=== PATIENT | male | born 1955 | race Caucasian/White ===

== ENCOUNTER 2018-06-30 14:11 | Emergency (ER) | payer OTHER ==
[2018-06-30] MEDS ORDERED: predniSONE 20 MG TAB ONE (16:01)
--- NOTE | 2018-06-30 16:02 | ER ---
Nurse's Notes [facility] Name: Leobardo Tejeda Age: 62 yrs Sex: Male : 1955 Arrival Date: 06/30/2018 Time: 14:13 Bed 19 Private MD: Ace Navas E Diagnosis: Gout Presentation: 06/30 14:38 Presenting complaint: Patient states: gout flare-up to right foot. Transition of care: aa5 patient was not received from another setting of care. Onset of symptoms was 2018. Risk Assessment: Do you want to hurt yourself or someone else? Patient reports no desire to harm self or others. Initial Sepsis Screen: Does the patient meet any 2 criteria? No. Patient's initial sepsis screen is negative. Does the patient have a suspected source of infection? No. Patient's initial sepsis screen is negative. Care prior to arrival: None. 14:38 Method Of Arrival: Wheelchair aa 14:38 Acuity: MERLY 3 aa5 Triage Assessment: 14:41 General: Appears in no apparent distress. uncomfortable, Behavior is calm, cooperative, hj appropriate for age. Pain: Complains of pain in right foot Pain currently is 10 out of 10 on a pain scale. 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 - Social history:: Smoking status: Patient uses tobacco products, smokes one pack cigarettes per day. - Ebola Screening: : No symptoms or risks identified at this time. Screenin:41 Abuse screen: Denies threats or abuse. Denies injuries from another. Nutritional hj screening: No deficits noted. Tuberculosis screening: No symptoms or risk factors identified. Fall Risk None identified. Assessment: 14:30 General: Appears in no apparent distress. uncomfortable, Behavior is calm, cooperative, hj appropriate for age. Pain: Complains of pain in right foot. Neuro: Level of Consciousness is awake, alert, obeys commands, Oriented to person, place, time, situation, Appropriate for age. Cardiovascular: Capillary refill < 3 seconds Patient's skin is warm and dry. Respiratory: Airway is patent Respiratory effort is even, unlabored, Respiratory pattern is regular, symmetrical. GI: No signs and/or symptoms were reported involving the gastrointestinal system. : No signs and/or symptoms were reported regarding the genitourinary system. EENT: No signs and/or symptoms were reported regarding the EENT system. Derm: No signs and/or symptoms reported regarding the dermatologic system. Musculoskeletal: Reports pain in right foot. Vital Signs: 14:39 BP 129 / 86; Pulse 105; Resp 18 S; Temp 98.0(TE); Pulse Ox 97% on R/A; Weight 102.06 kg aa5 (R); Height 5 ft. 10 in. (177.80 cm) (R); Pain 10/10; 16:09 BP 125 / 84; Pulse 99; Resp 18; Pulse Ox 100% on R/A; hj 14:39 Body Mass Index 32.28 (102.06 kg, 177.80 cm) aa5 ED Course: 14:13 Patient arrived in ED. rg4 14:14 Ace Navas MD is Private Physician. rg4 14:38 Triage completed. aa5 14:38 Arm band placed on. aa5 14:40 Jed Dixon RN is Primary Nurse. hj 14:41 Holden Lux MD is Attending Physician. gs 14:41 Patient has correct armband on for positive identification. Bed in low position. Call hj light in reach. Side rails up X 1. Adult w/ patient. 15:58 Ace Navas MD is Referral Physician. gs 16:09 No provider procedures requiring assistance completed. Patient did not have IV access hj during this emergency room visit. Administered Medications: 15:47 Drug: predniSONE 40 mg Route: PO; hj 15:56 Follow up: Response: No adverse reaction hj Outcome: 16:01 Discharge ordered by . gs 16:09 Discharged to home ambulatory, provided money for Sien; hj 16:09 Condition: stable 16:09 Discharge instructions given to patient, Instructed on discharge instructions, follow up and referral plans. medication usage, Demonstrated understanding of instructions, follow-up care, medications, Prescriptions given X 3. 16:10 Patient left the ED. hj Signatures: Yelena Gonzalez RN RN [facility] Jed Dixon RN RN hj Garcia, [facility] Holden Lux MD MD
--- NOTE | 2018-06-30 16:02 | EDPHYS ---
Physician Documentation [facility] Name: Leobardo Tejeda Age: 62 yrs Sex: Male : 1955 Arrival Date: 06/30/2018 Time: 14:13 Bed 19 Private MD: Ace Navas E ED Physician Holden Lux HPI: 06/30 15:46 This 62 yrs old Male presents to ER via Wheelchair with complaints of Foot gs Pain, Feet Swelling. 15:47 The patient presents with pain, swelling, tenderness. The complaints affect the right gs foot. Context: Mechanism of Injury: NO INJURY JUST PAINFUL SWOLLEN SIMILAR WITH GOUT ATTACKS. Onset: The symptoms/episode began/occurred 3 day(s) ago. Associated signs and symptoms: Pertinent negatives: fever. Severity of symptoms: At their worst the symptoms were moderate, in the emergency department the symptoms are unchanged. The patient has experienced similar episodes in the past, several times. 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 - Social history:: Smoking status: Patient uses tobacco products, smokes one pack cigarettes per day. - Ebola Screening: : No symptoms or risks identified at this time. ROS: 15:47 All other systems are negative. gs Exam: 15:47 ENT: Nares patent. No nasal discharge, no septal abnormalities noted. Tympanic gs membranes are normal and external auditory canals are clear. Oropharynx with no redness, swelling, or masses, exudates, or evidence of obstruction, uvula midline. Mucous membranes moist. Neck: Trachea midline, no thyromegaly or masses palpated, and no cervical lymphadenopathy. Supple, full range of motion without nuchal rigidity, or vertebral point tenderness. No Meningismus. Cardiovascular: Regular rate and rhythm with a normal S1 and S2. No gallops, murmurs, or rubs. Normal PMI, no JVD. No pulse deficits. Respiratory: Lungs have equal breath sounds bilaterally, clear to auscultation and percussion. No rales, rhonchi or wheezes noted. No increased work of breathing, no retractions or nasal flaring. Abdomen/GI: Soft, non-tender, with normal bowel sounds. No distension or tympany. No guarding or rebound. No evidence of tenderness throughout. Back: No spinal tenderness. No costovertebral tenderness. Full range of motion. Skin: Warm, dry with normal turgor. Normal color with no rashes, no lesions, and no evidence of cellulitis. Neuro: Awake and alert, GCS 15, oriented to person, place, time, and situation. Cranial nerves II-XII grossly intact. Motor strength 5/5 in all extremities. Sensory grossly intact. Cerebellar exam normal. Normal gait. 15:47 Constitutional: The patient appears alert, awake, uncomfortable. 15:47 Musculoskeletal/extremity: Extremities: noted in the dorsum of right foot and right first toe: swelling, tenderness. Vital Signs: 14:39 BP 129 / 86; Pulse 105; Resp 18 S; Temp 98.0(TE); Pulse Ox 97% on R/A; Weight 102.06 kg aa5 (R); Height 5 ft. 10 in. (177.80 cm) (R); Pain 10/10; 16:09 BP 125 / 84; Pulse 99; Resp 18; Pulse Ox 100% on R/A; hj 14:39 Body Mass Index 32.28 (102.06 kg, 177.80 cm) aa5 MDM: 15:40 Patient medically screened. gs 15:47 Differential diagnosis: arthritis, gout. Data reviewed: vital signs, nurses notes. gs Counseling: I had a detailed discussion with the patient and/or guardian regarding: the historical points, exam findings, and any diagnostic results supporting the discharge/admit diagnosis, the need for outpatient follow up. Response to treatment: the patient's symptoms have mildly improved after treatment, and as a result, I will discharge patient. Administered Medications: 15:47 Drug: predniSONE 40 mg Route: PO; hj 15:56 Follow up: Response: No adverse reaction Disposition: 06/30/18 16:01 Discharged to Home. Impression: Gout. - Condition is Stable. - Discharge Instructions: Gout, [id number]. - Prescriptions for Colchicine- Probenecid 0.5-500 mg Oral Tablet - take 1 tablet by ORAL route TAKE Q 1 HOURS TOLERATED PRN PAIN; 6 tablet. Prednisone 20 mg Oral Tablet - take 1 tablet by ORAL route once daily for 5 days; 5 tablet. Tylenol- Codeine #4 300-60 mg Oral Tablet - take 1 tablet by ORAL route every 6 hours As needed; 10 tablet. - Medication Reconciliation Form, Thank You Letter, Antibiotic Education, Prescription Opioid Use form. - Follow up: Ace Navas MD; When: 2 - 3 days; Reason: Re-evaluation by your physician. Signatures: Yelena Gonzalez RN RN aa5 Jed Dixon RN RN hj Holden Lux MD MD gs Corrections: (The following items were deleted from the chart) 16:10 16:01 06/30/2018 16:01 Discharged to Home. Impression: Gout. Condition is Stable. Forms hj are Medication Reconciliation Form, Thank You Letter, Antibiotic Education, Prescription Opioid Use. Follow up: Ace Navas; When: 2 - 3 days; Reason: Re-evaluation by your physician. gs
== END 2018-06-30 16:10 | disposition home or self-care (01) ==
LOC: ER 14:11
DX: M10.9 Gout, unspecified (principal); F17.210 Nicotine dependence, cigarettes, uncomplicated
CPT/HCPCS: 99283; J7512

== ENCOUNTER 2019-03-24 07:42 | Emergency (ER) | payer OTHER ==
[2019-03-24] MEDS ORDERED: METHYLPREDNISOLONE 125 MG INJ ONE (08:16)
[2019-03-24] MEDS ORDERED: predniSONE 20 MG TAB ONE (08:16)
[2019-03-24] MEDS ORDERED: MORPHINE 4 MG/ML SYR ONE (08:16)
[2019-03-24] MEDS ORDERED: ONDANSETRON 4 MG/2 ML VIAL ONE (08:16)
[2019-03-24] MEDS ORDERED: FAMOTIDINE 20 MG/2 ML VIAL IV ONE (08:17)
--- NOTE | 2019-03-24 09:28 | ER ---
Nurse's Notes [facility] Name: Leobardo Tejeda Age: 63 yrs Sex: Male : 1955 Arrival Date: 03/24/2019 Time: 07:43 Bed 13 Private MD: Ace Navas E Diagnosis: Gout Presentation: 03/24 07:43 Presenting complaint: EMS states: pt complaining of left elbow pain that started last sg week, worsening today, pt also reports having ankle pain related to gout. pt reports taking allopurinol at home, denies any other symptoms at this time. Transition of care: patient was not received from another setting of care. Onset of symptoms was March 24, 2019. Risk Assessment: Do you want to hurt yourself or someone else? Patient reports no desire to harm self or others. Initial Sepsis Screen: Does the patient meet any 2 criteria? No. Patient's initial sepsis screen is negative. Does the patient have a suspected source of infection? No. Patient's initial sepsis screen is negative. Care prior to arrival: None. 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 - Social history:: Smoking status: Patient/guardian denies using tobacco. - Ebola Screening: : Patient negative for fever greater than or equal to 101.5 degrees Fahrenheit, and additional compatible Ebola Virus Disease symptoms Patient denies exposure to infectious person Patient denies travel to an Ebola-affected area in the 21 days before illness onset No symptoms or risks identified at this time. Screenin:49 Abuse screen: Denies threats or abuse. Denies injuries from another. Nutritional sg screening: No deficits noted. Tuberculosis screening: No symptoms or risk factors identified. Never had TB. Fall Risk None identified. Assessment: 07:49 General: Appears in no apparent distress. well groomed, well developed, well nourished, sg Behavior is calm, cooperative, appropriate for age. Pain: Complains of pain in left elbow Quality of pain is described as aching. Neuro: Level of Consciousness is awake, alert, obeys commands, Oriented to person, place, time, [employer] are equal bilaterally Speech is normal, Facial symmetry appears normal. Cardiovascular: Capillary refill is brisk in bilateral fingers Patient's skin is warm and dry. Chest pain is denied. Respiratory: Airway is patent Respiratory effort is even, unlabored, Respiratory pattern is regular, symmetrical. GI: Abdomen is round non-distended. : No signs and/or symptoms were reported regarding the genitourinary system. EENT: No signs and/or symptoms were reported regarding the EENT system. Derm: Skin is pink, warm \\T\\ dry. Musculoskeletal: Circulation, motion, and sensation intact. Range of motion: intact in all extremities, Reports pain in left elbow. 07:54 Reassessment: Patient appears in no apparent distress at this time. pt shouting out sg loud " I didn't just come in here to just sit here, I came in here for help." awaiting evaluation by at this time. 09:00 Reassessment: Patient appears in no apparent distress at this time. Patient and/or sg family updated on plan of care and expected duration. Pain level reassessed. pt resting at this time. Vital Signs: 07:47 BP 146 / 72; Pulse 86; Resp 16; Temp 97.6; Pulse Ox 100% ; Weight 95.25 kg; Height 5 sg ft. 9 in. (175.26 cm); Pain 8/10; 07:47 Body Mass Index 31.01 (95.25 kg, 175.26 cm) ED Course: 07:43 Patient arrived in ED. sg 07:43 Ace Navas MD is Private Physician. sg 07:44 Nishant Brown MD is Attending Physician. kdr 07:46 Triage completed. sg 07:47 Arm band placed on. sg 07:49 No provider procedures requiring assistance completed. sg 07:51 Patient has correct armband on for positive identification. Bed in low position. Call sg light in reach. Pulse ox on. NIBP on. 07:51 Sling applied to left arm. per patient request for comfort. sg 08:11 Inserted saline lock: 20 gauge in right hand, using aseptic technique. em1 08:13 Frank Vela, CRICKET is Primary Nurse. sg 09:27 Ace Navas MD is Referral Physician. kdr Administered Medications: 08:20 Drug: Zofran 4 mg Route: IVP; Site: right hand; sg 08:23 Drug: SOLU-Medrol 125 mg Route: IVP; Site: right hand; sg 08:23 Drug: morphine 4 mg Route: IVP; Site: right hand; sg 08:23 Drug: Pepcid 20 mg Route: IVP; Site: right hand; sg 09:45 Drug: fentaNYL Patch (50 mcg/hr) 1 patches {Note: left deltoid.} Route: Transdermal; Site: affected area; Outcome: :27 Discharge ordered by . kdr 09:56 Patient left the ED. sg Signatures: Frank Vela RN RN Nishant Brown MD MD [facility] Tommy Xavier 1
--- NOTE | 2019-03-24 09:29 | EDPHYS ---
Physician Documentation [facility] Name: Leobardo Tejeda Age: 63 yrs Sex: Male : 1955 Arrival Date: 03/24/2019 Time: 07:43 Bed 13 Private MD: Ace Navas E ED Physician Nishant Brown HPI: 03/24 08:02 This 63 yrs old Male presents to ER via EMS with complaints of Arm Pain. kdr 08:02 The patient or guardian complains of decreased range of motion, pain, that is acute. kdr The complaints affect the left antecubital area and left elbow. Context: The problem was sustained at home, resulted from Gout Flare. Onset: The symptoms/episode began/occurred gradually, 3 day(s) ago. Treatment prior to arrival includes: no previous treatment. Modifying factors: The symptoms are alleviated by remaining still, the symptoms are aggravated by movement, bending arm. Associated signs and symptoms: The patient has no apparent associated signs or symptoms. Severity of symptoms: At their worst the symptoms were moderate, severe, just prior to arrival. The patient has experienced similar episodes in the past, multiple times. The patient has not recently seen a physician. 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 - Social history:: Smoking status: Patient/guardian denies using tobacco. - Ebola Screening: : Patient negative for fever greater than or equal to 101.5 degrees Fahrenheit, and additional compatible Ebola Virus Disease symptoms Patient denies exposure to infectious person Patient denies travel to an Ebola-affected area in the 21 days before illness onset No symptoms or risks identified at this time. ROS: 08:02 Constitutional: Negative for fever, chills, and weight loss, Eyes: Negative for injury, kdr pain, redness, and discharge, Neck: Negative for injury, pain, and swelling, Cardiovascular: Negative for chest pain, palpitations, and edema, Respiratory: Negative for shortness of breath, cough, wheezing, and pleuritic chest pain, Abdomen/GI: Negative for abdominal pain, nausea, vomiting, diarrhea, and constipation, Back: Negative for injury and pain, : Negative for injury, bleeding, discharge, and swelling, MS/Extremity: Negative for injury and deformity, he does have pain and warmth to the medical aspect of the left elbow nad the lateral aspect of the left ankle Skin: Negative for injury, rash, and discoloration, Neuro: Negative for headache, weakness, numbness, tingling, and seizure activity. Psych: Negative for depression, anxiety, suicide ideation, homicidal ideation, and hallucinations, Allergy/Immunology: Negative for hives, rash, and allergies, Endocrine: Negative for neck swelling, polydipsia, polyuria, polyphagia, and marked weight changes, Hematologic/Lymphatic: Negative for swollen nodes, abnormal bleeding, and unusual bruising. Exam: 08:02 Constitutional: This is a well developed, well nourished patient who is awake, alert, kdr and in no acute distress. Head/Face: Normocephalic, atraumatic. Eyes: Pupils equal round and reactive to light, extra-ocular motions intact. Lids and lashes normal. Conjunctiva and sclera are non-icteric and not injected. Cornea within normal limits. Periorbital areas with no swelling, redness, or edema. Neck: Trachea midline, no thyromegaly or masses palpated, and no cervical lymphadenopathy. Supple, full range of motion without nuchal rigidity, or vertebral point tenderness. No Meningismus. Back: No spinal tenderness. No costovertebral tenderness. Full range of motion. Skin: Warm, dry with normal turgor. Normal color with no rashes, no lesions, and no evidence of cellulitis. Neuro: Awake and alert, GCS 15, oriented to person, place, time, and situation. Cranial nerves II-XII grossly intact. Motor strength 5/5 in all extremities. Sensory grossly intact. Cerebellar exam normal. Normal gait. Psych: Awake, alert, with orientation to person, place and time. Behavior, mood, and affect are within normal limits. 08:02 Musculoskeletal/extremity: Extremities: grossly normal except: noted in the left antecubital area and left elbow: pain, tenderness, warmth, The patient describes this presentation as a recurrence of his ongoing gout issues. Vital Signs: 07:47 BP 146 / 72; Pulse 86; Resp 16; Temp 97.6; Pulse Ox 100% ; Weight 95.25 kg; Height 5 sg ft. 9 in. (175.26 cm); Pain 8/10; 07:47 Body Mass Index 31.01 (95.25 kg, 175.26 cm) sg MDM: 09:27 Patient medically screened. kdr 09:29 Data reviewed: vital signs, nurses notes. Counseling: I had a detailed discussion with kdr the patient and/or guardian regarding: the historical points, exam findings, and any diagnostic results supporting the discharge/admit diagnosis, the need for outpatient follow up. ED course: The patient was stable in the ED and improved with the interventions given. he was happy with the care provided and the plan for discharge and follow-up. Administered Medications: 08:20 Drug: Zofran 4 mg Route: IVP; Site: right hand; sg 08:23 Drug: SOLU-Medrol 125 mg Route: IVP; Site: right hand; sg 08:23 Drug: morphine 4 mg Route: IVP; Site: right hand; sg 08:23 Drug: Pepcid 20 mg Route: IVP; Site: right hand; sg 09:45 Drug: fentaNYL Patch (50 mcg/hr) 1 patches {Note: left deltoid.} Route: Transdermal; Site: affected area; Disposition: 03/24/19 09:27 Discharged to Home. Impression: Gout. - Condition is Stable. - Discharge Instructions: Gout, [id number]. - Prescriptions for Colchicine- Probenecid 0.5-500 mg Oral Tablet - take 1 tablet by ORAL route every 1 hour up to 3 hours; 3 tablet. Medrol (Enrrique) 4 mg Oral Tablets, Dose Pack - take 1 tablet by ORAL route as directed - follow package instructions; 1 packet. - Medication Reconciliation Form, Thank You Letter, Prescription Opioid Use form. - Follow up: Ace Navas MD; When: 2 - 3 days; Reason: If symptoms return, Further diagnostic work-up, Recheck today's complaints, Continuance of care, Re-evaluation by your physician. - Problem is an acute exacerbation. - Symptoms have improved. Signatures: Frank Vela RN RN sg Nishant Brown MD MD [facility] Corrections: (The following items were deleted from the chart) 09:56 09:27 03/24/2019 09:27 Discharged to Home. Impression: Gout. Condition is Stable. Forms sg are Medication Reconciliation Form, Thank You Letter, Antibiotic Education, Prescription Opioid Use. Follow up: Ace Navas; When: 2 - 3 days; Reason: If symptoms return, Further diagnostic work-up, Recheck today's complaints, Continuance of care, Re-evaluation by your physician. Problem is an acute exacerbation. Symptoms have improved. kdr
[2019-03-24] MEDS ORDERED: FENTANYL 50 MCG/PATCH TD ONE (09:39)
[2019-03-24 10:16] VITALS: TEMP 98.6
[2019-03-24 10:24] VITALS: BP 124/62; O2SAT 100
== END 2019-03-24 09:56 | disposition home or self-care (01) ==
LOC: ER 07:42
DX: M10.9 Gout, unspecified (principal); Z87.820 Personal history of traumatic brain injury
CPT/HCPCS: 96375; 96374; 99284; J7512; J2930; J2405

== ENCOUNTER 2021-05-04 10:19 | Emergency (ER) | payer OTHER ==
[2021-05-04] MEDS ORDERED: HYDROCODONE/APAP 10/325 TAB ONE (11:28)
--- NOTE | 2021-05-04 12:25 | EDPHYS ---
Physician Documentation [facility] Name: Leobardo Tejeda Age: 65 yrs Sex: Male : 1955 Arrival Date: 05/04/2021 Time: 10:21 Bed 17 Private MD: ED Physician Nishant Brown HPI: 05/04 17:31 This 65 yrs old Male presents to ER via EMS with complaints of Right foot and great toe kdr pain. 17:31 The patient presents with decreased range of motion, pain, that is chronic. The kdr complaints affect the right foot. Context: Patient has history of gout in the same foot and ankle. Over the last few days, 3 to 4 days, he has had increasing pain and is in his typical fashion for gout flares. He denies any other associated signs or symptoms including fever nausea vomiting. Onset: The symptoms/episode began/occurred gradually, 4 day(s) ago. Modifying factors: The symptoms are alleviated by nothing, the symptoms are aggravated by nothing. Associated signs and symptoms: The patient has no apparent associated signs or symptoms. Severity of symptoms: At their worst the symptoms were mild, in the emergency department the symptoms are unchanged. The patient has experienced similar episodes in the past, multiple times, chronically. The patient has not recently seen a physician. Historical: - Home Meds: 10:23 Allopurinol Oral [Active]; ap3 - PMHx: 10:23 Distant drug abuse; Gout; ap3 - Immunization history:: Adult Immunizations up to date, Client reports receiving the 2nd dose of the Covid vaccine. - Social history:: Smoking status: Patient reports the use of cigarette tobacco products, smokes one pack cigarettes per day. Patient uses alcohol, occasionally. ROS: 17:31 Constitutional: Negative for fever, chills, and weight loss, Eyes: Negative for injury, kdr pain, redness, and discharge, Neck: Negative for injury, pain, and swelling, Cardiovascular: Negative for chest pain, palpitations, and edema, Respiratory: Negative for shortness of breath, cough, wheezing, and pleuritic chest pain, Abdomen/GI: Negative for abdominal pain, nausea, vomiting, diarrhea, and constipation, Back: Negative for injury and pain, : Negative for injury, bleeding, discharge, and swelling, Skin: Negative for injury, rash, and discoloration, Neuro: Negative for headache, weakness, numbness, tingling, and seizure activity. Psych: Negative for depression, anxiety, suicide ideation, homicidal ideation, and hallucinations, Allergy/Immunology: Negative for hives, rash, and allergies, Endocrine: Negative for neck swelling, polydipsia, polyuria, polyphagia, and marked weight changes, Hematologic/Lymphatic: Negative for swollen nodes, abnormal bleeding, and unusual bruising. 17:31 MS/extremity: Positive for decreased range of motion, pain, tenderness, of the lateral aspect of right toes, medial aspect of right toes, ball of right foot, right first toe and Right first toenail. Exam: 17:31 Constitutional: This is a well developed, well nourished patient who is awake, alert, kdr and in no acute distress. Head/Face: Normocephalic, atraumatic. 17:31 Musculoskeletal/extremity: Extremities: grossly normal except: noted in the medial aspect of right toes, plantar aspect of right first toe, ball of right foot and right first toe: decreased ROM, pain, swelling, tenderness, Minimal swelling, tenderness and erythema to the first MTP on the right foot. Vital Signs: 10:22 BP 128 / 67; Pulse 76; Resp 17; Temp 98.6(O); Pulse Ox 100% on R/A; Weight 90.72 kg; ap3 Height 5 ft. 10 in. (177.80 cm); Pain 8/10; 10:30 BP 130 / 71; Pulse 78; Resp 17 S; Pulse Ox 99% on R/A; jg9 11:00 BP 136 / 73; Pulse 78; Resp 17; Pulse Ox 99% on R/A; jg9 12:30 BP 140 / 78; Pulse 80; Resp 17; Pulse Ox 97% on R/A; jg9 10:22 Body Mass Index 28.70 (90.72 kg, 177.80 cm) ap3 MDM: 12:24 Patient medically screened. kdr 17:31 Data reviewed: vital signs, nurses notes, lab test result(s), radiologic studies. kdr Counseling: I had a detailed discussion with the patient and/or guardian regarding: the historical points, exam findings, and any diagnostic results supporting the discharge/admit diagnosis, the need for outpatient follow up. Administered Medications: 11:32 Drug: [place] (HYDROcodone-acetaminophen) 10 mg-325 mg 1 tabs {Note: RASS-0.} Route: PO; jg9 12:30 Follow up: Response: No adverse reaction; Pain is decreased jg9 12:42 Drug: SOLU-Medrol (methylPREDNISolone sodium succinate) 125 mg Route: IM; Site: left jg9 vastus lateralis; 12:43 Follow up: Response: Medication administered at discharge. jg9 Disposition Summary: 05/04/21 12:24 Discharge Ordered Location: Home kdr Problem: an acute exacerbation kdr Symptoms: have improved kdr Condition: Stable kdr Diagnosis - Idiopathic gout, right ankle and foot kdr Followup: kdr - With: Private Physician - When: 2 - 3 days - Reason: If symptoms return, Further diagnostic work-up, Recheck today's complaints, Continuance of care, Re-evaluation by your physician Discharge Instructions: - Discharge Summary Sheet kdr - Gout, [id number] kdr Forms: - Medication Reconciliation Form kdr - Thank You Letter kdr - Antibiotic Education kdr - Prescription Opioid Use kdr Prescriptions: - colchicine 0.6 mg Oral tablet - take 2 tablet by ORAL route once daily for 7 days; 14 tablet; Refills: 0, kdr Product Selection Permitted - indomethacin 50 mg Oral capsule - take 1 capsule by ORAL route 3 times per day for 7 days; 21 capsule; Refills: kdr 0, Product Selection Permitted - Medrol (Enrrique) 4 mg Oral Tablets, Dose Pack - take 1 tablet by ORAL route as directed - follow package instructions; 1 kdr packet; Refills: 0, Product Selection Permitted - Tylenol-Codeine #3 300 mg-30 mg Oral - take 1 tablet by ORAL route every 4-6 hours As needed; 10 tablet; Refills: 0, kdr Product Selection Permitted Signatures: Nishant Brown MD MD kdr Flakita Weinstein RN RN ap3 Erika Alvarez jg9 Corrections: (The following items were deleted from the chart) 10:24 10:23 PMHx: seizures (from head injury); ap3 ap3
--- NOTE | 2021-05-04 12:25 | ER ---
Nurse's Notes [facility] Name: Leobardo Tejeda Age: 65 yrs Sex: Male : 1955 Arrival Date: 05/04/2021 Time: 10:21 Bed 17 [facility] MD: Diagnosis: Idiopathic gout, right ankle and foot Presentation: 05/04 10:22 Chief complaint: EMS states: they were called for a patient complaining of right foot ap3 pain related to a hx of gout. patient reports he has been out of his medication for approx. 2 weeks. Coronavirus screen: At this time, the client does not indicate any symptoms associated with coronavirus-19. Ebola Screen: No symptoms or risks identified at this time. Initial Sepsis Screen: Does the patient meet any 2 criteria? No. Patient's initial sepsis screen is negative. Does the patient have a suspected source of infection? No. Patient's initial sepsis screen is negative. Risk Assessment: Do you want to hurt yourself or someone else? Patient reports no desire to harm self or others. Onset of symptoms was May 04, 2021. 10:22 Method Of Arrival: EMS: [facility] ap3 10:22 Acuity: MERLY 4 ap3 Historical: - Home Meds: 10:23 Allopurinol Oral [Active]; ap3 - PMHx: 10:23 Distant drug abuse; Gout; ap3 - Immunization history:: Adult Immunizations up to date, Client reports receiving the 2nd dose of the Covid vaccine. - Social history:: Smoking status: Patient reports the use of cigarette tobacco products, smokes one pack cigarettes per day. Patient uses alcohol, occasionally. Screenin:25 Abuse screen: Denies threats or abuse. Nutritional screening: No deficits noted. ap3 Tuberculosis screening: No symptoms or risk factors identified. Fall Risk No fall in past 12 months (0 pts). Secondary diagnosis (15 points) gout in right foot. No IV (0 pts). Ambulatory Aid- None/Bed Rest/Nurse Assist (0 pts). Gait- Weak (10 pts.). Mental Status- Oriented to own ability (0 pts). Total Alvarado Fall Scale indicates Low Risk Score (25-44 pts). Fall prevention measures have been instituted. Side Rails Up X 2 Placed close to Nursing Station Frequent Obs/Assesments occuring As available Patient and Family Educated on Fall Prevention Program and strategies. Assessment: 10:24 General: Appears in no apparent distress. Behavior is calm, cooperative. Pain: ap3 Complains of pain in right foot. Pain: Pain does not radiate. Pain currently is 8 out of 10 on a pain scale. Neuro: Level of Consciousness is awake, alert, obeys commands, Oriented to person, place, time, situation, Appropriate for age. Cardiovascular: Patient's skin is warm and dry. Respiratory: Airway is patent Respiratory effort is even, unlabored. GI: No signs and/or symptoms were reported involving the gastrointestinal system. Musculoskeletal: Swelling present in right foot. 11:33 Reassessment: Patient states that if he can't go outside to have a smoke he is going to [facility] leave. 11:35 Reassessment: patient attempting to ambulate. patient is unsteady on his feet. nurse ap3 educated patient on need to request assistance when ambulating. patient verbalized understanding. Patient then requested to smoke, nurse then educated patient on the dangers of smoking in a hospital facility where oxygen is used. Patient verbalized understanding. Patient states he wants to go outside for a cigerette. Nurse educated patient that he just received a narcotic, and he is unsteady. patient still insists on leaving. 11:54 Reassessment: patient approaching nurses station stating he needs a cigarette. nurse ap3 educated patient on the facilities policies regarding smoking. patient is getting verbally aggressive. patient instructed to return to his room. patient is still unsteady on his feet, and educated again on the use of the call light. patient verbalized understanding. 12:31 Reassessment: patient wheeled himself outside for a cigarette after being educated that [facility] non[facility]. Security notified. Vital Signs: 10:22 BP 128 / 67; Pulse 76; Resp 17; Temp 98.6(O); Pulse Ox 100% on R/A; Weight 90.72 kg; ap3 Height 5 ft. 10 in. (177.80 cm); Pain 8/10; 10:30 BP 130 / 71; Pulse 78; Resp 17 S; Pulse Ox 99% on R/A; jg9 11:00 BP 136 / 73; Pulse 78; Resp 17; Pulse Ox 99% on R/A; jg9 12:30 BP 140 / 78; Pulse 80; Resp 17; Pulse Ox 97% on R/A; jg9 10:22 Body Mass Index 28.70 (90.72 kg, 177.80 cm) ap3 ED Course: 10:21 Patient arrived in ED. em1 10:22 Flakita Weinstein, RN is Primary Nurse. ap3 10:23 Triage completed. ap3 10:25 Patient has correct armband on for positive identification. Bed in low position. Call ap3 light in reach. Side rails up X 1. Pulse ox on. NIBP on. Door closed. Noise minimized. 10:26 Arm band placed on right wrist. ap3 10:34 Nishant Brown MD is Attending Physician. kdr 12:46 No provider procedures requiring assistance completed. Patient did not have IV access ap3 during this emergency room visit. Administered Medications: 11:32 Drug: [place] (HYDROcodone-acetaminophen) 10 mg-325 mg 1 tabs {Note: RASS-0.} Route: PO; jg9 12:30 Follow up: Response: No adverse reaction; Pain is decreased jg9 12:42 Drug: SOLU-Medrol (methylPREDNISolone sodium succinate) 125 mg Route: IM; Site: left jg9 vastus lateralis; 12:43 Follow up: Response: Medication administered at discharge. jg9 Outcome: 12:24 Discharge ordered by . kdr 12:46 Discharged to home via wheelchair. jg9 12:46 Condition: stable 12:46 Discharge instructions given to patient, Instructed on discharge instructions, follow up and referral plans. Demonstrated understanding of instructions, follow-up care, medications, Prescriptions given X 4. 12:47 Patient left the ED. jg9 Signatures: Nishant Brown MD MD kdr Tommy Xavier em1 Flakita Weinstein, RN RN ap3 Erika Alvarez jg9 Corrections: (The following items were deleted from the chart) 10:24 10:23 PMHx: seizures (from head injury); ap3 ap3
[2021-05-04] MEDS ORDERED: METHYLPREDNISOLONE 125 MG INJ ONE (12:36)
[2021-05-04 13:08] VITALS: TEMP 98.6
[2021-05-04 13:14] VITALS: BP 140/78; O2SAT 97
== END 2021-05-04 12:47 | disposition home or self-care (01) ==
LOC: ER 10:19
DX: M10.071 Idiopathic gout, right ankle and foot (principal); F17.210 Nicotine dependence, cigarettes, uncomplicated
CPT/HCPCS: 96372; 99284; J2930

== ENCOUNTER 2023-09-29 01:03 | Emergency (ER) | payer OTHER ==
--- OUTSIDE RECORDS SUMMARY | 2023-09-29 01:05 | XMS REPORT | Continuity of Care Document ---
Author Name Unknown Address [address] [facility] [address] [place] [id number] [facility] thconnect Address [address] [facility] 1 [address] [place] [address] Care Team Providers Care Registered Associate Name Role Phone PCP, PATIENT DOES NOT HAVE A Primary Care Physic demarcus Unavailable HOLDEN WILLIAMSON Attending Clinician Unavailable Holden Williamson MD Attending Clinician HOLDEN WILLIAMSON Admitting Clinician Unavailable Payers Payer Name Policy Type Policy Number Effective Date Expirati on Date Source MEDICARE PART A \\T\\ B [id number] 2022 00:00:00 MEDICAID [facility] [id number] 2023 00:00:00 Allergies, Adverse Reactions, Alerts Allergy Name Allergy Type Status Severity Reaction(s) Onset Date Inactive Date Treating Clinician Comments Source NO KNOWN ALLERGIE S Drug Class Active [facility] Social History Social Habit Start Date Stop Date Quantity Comments Source Sexual orientation U [facility] Sex Assigned At 1955 00:00:00 1955 00:00:00 [facility] Smoking Status Start Date Stop Date Source Tobacco smoking consumption unknown [facility] Medications Ordered Medication Name Filled Medication Name Start Date Stop Date Current Medication? Ordering Clinician Indication Dosage Frequency Signature (SIG) Comments Components Source maalox:diph enhydrAMINE :lidocaine 2 % viscous 1:1:1 (FIRST-MOUT HWASH BLM) oral suspension 15 mL 2022-05 18:45: 00 05-13 18:56 :00 No 15mL 15 mL, Oral, ONCE, 1 dose, On Sat05/13/23 at 1245, Routine [facility] famotidine (PEPCID (PF)) injection 20 mg 2022-05 16:00: 00 05-13 15:58 :00 No 20mg 20 mg, Slow IV Push, ONCE, 1 dose, On Sat05/13/23 at 1000, ISI [facility] Immunizations Ordered Immunization Name Filled Immunization Name Date Status Comments Source SARS-COV-2 COVID-19 MODERNA 12+ YRS VACCINE Unknown Completed [facility] SARS-COV-2 COVID-19 MODERNA 12+ YRS VACCINE Unknown Completed [facility] Vital Signs Vital Name Observation Time Observation Value Comments S ource Systolic blood pressure 2023-05-13 19:30:00 154 mm[Hg] [facility] Diastolic blood pressure 2023-05-13 19:30:00 90 mm[Hg] [facility] Heart rate 2023-05-13 19:30:00 75 /min [facility] Respiratory rate 2023-05-13 19:30:00 18 /min [facility] Oxygen saturation in Arterial blood by Pulse oximetry 2023-05-13 19:30:00 97 /min [facility] Body temperature 2023-05-13 15:27:00 36.39 Cindy [facility] Body height 2023-05-13 15:27:00 177.8 cm [facility] Body weight 2023-05-13 15:27:00 90.719 kg [facility] BMI 2023-05-13 15:27:00 28.70 kg/m2 [facility] Procedures Procedure Date / Time Performed Performing Clinicia n Source TROPONIN I 2023-05-13 19:02:00 Holden Williamson [facility] HB ECG ROUTINE & RHYTHM STRIP 2023-05-13 15:59:09 Holden Williamson [facility] LIPASE 2023-05-13 15:58:00 Holden Williamson [facility] TROPONIN I 2023-05-13 15:58:00 Holden Williamson [facility] COMP. METABOLIC PANEL (31094) 2023-05-13 15:58:00 Holden Williamson [facility] CBC WITH DIFF 2023-05-13 15:58:00 Holden Williamson [facility] N-TERMINAL PRO-BNP 2023-05-13 15:58:00 Holden Williamson [facility] Encounters Start Date/Time End Date/Time Encounter Type Admission Type Attending Clinicians Care Facility Care Department Encounter ID Source 2023-05-13 09:26:00 2023-05-13 14:38:00 Emergency X HOLDEN WILLIAMSON [facility] ERT [id number] [facility] 2023-05-13 09:26:00 2023-05-13 14:38:00 Emergency Holden Williamson [facility] 1.2.840.114 350.1.13.10 4.2.7.2.686 [id number] [facility] Results Test Description Test Time Test Comments Results Result Co mments Source [facility]OLIC PANEL (95652)2023-05-13 17:06:52* Test Item Value Reference Range Interpretation Comme nts NA (test code = 6260692181) 135 mmol/L 135-145 K (test code = 5497400320) 4.1 mmol/L 3.5-5.0 CL (test code = 8238350787) 101 mmol/L 98-108 CO2 TOTAL (test code = 4537850274) 24 mmol/L 23-31 AGAP (test code = 4818968961) 10 2-16 BUN (test code = 2670652005) 18 mg/dL 7-23 GLUCOSE (test code = 9368748924) 109 mg/dL 70-110 CREATININE (test code = 3631525527) 0.87 mg/dL 0.60-1.25 TOTAL BILI (test code = 4149840290) 1.4 mg/dL 0.1-1.1 H CALCIUM (test code = 9539110959) 9.0 mg/dL 8.6-10.6 T PROTEIN (test code = 5632972954) 7.6 g/dL 6.3-8.2 ALBUMIN (test code = 2073175824) 4.1 g/dL 3.5-5.0 ALK PHOS (test code = 8710638467) 73 U/L 34-122 ALTv (test code = 1742-6) 31 U/L 5-50 AST(SGOT) (test code = 4804824773) 34 U/L 13-40 eGFR (test code = 77654-4) 95.8 mL/min/1.73m2 CKD-EPI eGFR (2020). Assuming creatinine has been stable day-to-day for at least three months, the eGFR indicates Category G1 (>= 90 mL/min/1.73 m2) Lab Interpretation (test code = 54497-1) Abnormal [facility] J4840-35-83 16:44:31* Test Item Value Reference Range Interpretation Comme nts TROPONIN I (test code = 0217632142) 0.004 ng/mL <=0.034 SARA (test code = SARA) Reference (Normal) Range (defined by the 99th percentile reference limit): <= 0.034 ng/mL Note: Cardiac troponin begins to rise 3-4 hours after the onset of ischemia. Repeat in 4-6 hours if the sample was drawn within 3-4 hours of the onset of the symptom and found normal. Diagnosis of myocardial injury is made with acute changes in cTn concentrations with at least one serial sample above the 99th percentile upper reference limit (URL), taken together with the patient's clinical presentation. Biotin has been reported to cause a negative bias, interpret results relative to patient's use of biotin. Lab Interpretation (test code = 31039-6) Normal [facility]AL KXF-HZX0281-76-25 16:42:40* Test Item Value Reference Range Interpretation Comme nts NT-proBNP (test code = 49301-6) 254 pg/mL <=125 SARA (test code = SARA) Result Indeterminate-Consid er causes of NT-proBNP elevation other than Heart failure such as acute coronary syndrome, pulmonary embolism, pulmonary hypertension, sepsis, stroke, and renal dysfunction. Lab Interpretation (test code = 15643-7) Abnormal [facility] CenterLIPASE2023-12-25 16:32:27* Test Item Value Reference Range Interpretation Comme nts LIPASE (test code = 0855691213) 39 U/L 0-220 Lab Interpretation (test cod e = 46050-9) Normal [facility] WITH UYOD4735-57-15 16:24:49* Test Item Value Reference Range Interpretation Comme nts WBC (test code = 6690-2) 10.54 See_Comment [Automated messa ge] The system which generated this result transmitted reference range: 4.20 - 10.70 10*3/?L. The reference range was not used to interpret this result as normal/abnormal. RBC (test code = 789-8) 4.10 See_Comment L [Automated messa ge] The system which generated this result transmitted reference range: 4.26 - 5.52 10*6/?L. The reference range was not used to interpret this result as normal/abnormal. HGB (test code = 718-7) 13.2 g/dL 12.2-16.4 HCT (test code = 4544-3) 37.7 % 38.4-49.3 L MCV (test code = 787-2) 92.0 fL 81.7-95.6 MCH (test code = 785-6) 32.2 pg 26.1-32.7 MCHC (test code = 786-4) 35.0 g/dL 31.2-35.0 RDW-SD (test code = 08807-0) 42.1 fL 38.5-51.6 RDW-CV (test code = 788-0) 12.7 % 12.1-15.4 PLT (test code = 777-3) 180 See_Comment [Automated messa ge] The system which generated this result transmitted reference range: 150 - 328 10*3/?L. The reference range was not used to interpret this result as normal/abnormal. MPV (test code = 88173-6) 9.1 fL 9.8-13.0 L NRBC/100 WBC (test code = 0223067100) 0.0 See_Comment [Automated Remicalm ssage] The system which generated this result transmitted reference range: 0.0 - 10.0 /100 WBCs. The reference range was not used to interpret this result as normal/abnormal. NRBC x10^3 (test code = 7651029590) See_Comment [Automated messa ge] The system which generated this result transmitted reference range: 10*3/?L. The reference range was not used to interpret this result as normal/abnormal. GRAN MAT (NEUT) % (test code = 770-8) 78.7 % IMM GRAN % (test code = 4052574402) 0.80 % LYMPH % (test code = 736-9) 12.0 % MONO % (test code = 5905-5) 7.8 % EOS % (test code = 713-8) 0.4 % BASO % (test code = 706-2) 0.3 % GRAN MAT x10^3(ANC) (test code = 5251015142) 8.30 10*3/uL 1.99-6.95 H IMM GRAN x10^3 (test code = 9985027365) 0.08 10*3/uL 0.00-0.06 H LYMPH x10^3 (test code = 731-0) 1.27 10*3/uL 1.09-3.23 MONO x10^3 (test code = 742-7) 0.82 10*3/uL 0.36-1.02 EOS x10^3 (test code = 711-2) 0.04 10*3/uL 0.06-0.53 L BASO x10^3 (test code = 704-7) 0.03 10*3/uL 0.01-0.09 Lab Interpretation (test code = 21853-5) Abnormal [facility] Notes Date/Time Note Provider Source 2023-05-13 14:38:22 +WgHp9iKrSzdR4hCLiAUCkjvjaZDF3HCTVZEDp 7wvbwcNFrPmLGboD7OGU5iFUFb6519-22-36Y6 4:38:22 Pt D/C in custody of officers. AOx4, VS stable, no ataxia noted. Officers given D/C paperwork. S/S relieved with no apparent distress noted at this time. 11698-3Nhgfrlncc department DhxeLO7269-29-22R23:38:37[facility] NoteTXT1.2.840.789254.1.13.104.2.7.2.7 47798|[id number] for patient gcjt59971-0XfggABHFCWIBNXVKibebixiv C-CDA narrative text[id number] SVVSLSUIDRJHHMRVPPPC9399-47-52N12:38:3 71.2.840.439182.1.72.3.15|1.2.840.[address]104.2.7.2.727879_[id number] [facility] 2023-05-13 11:00:24 PbzSJEJu7pBbUOfKlH14NjGlK86UiEus1ut2mY j2VbpItzs9QFH4FLFgyxZ0kZBB1046-27-47M5 1:00:24 Report received from CRICKET Xavier 79725-8Lkunkqypk department MfxqCS3128-94-90X80:00:52Emergency department NoteTXT1.2.840.584539.1.13.104.2.7.2.7 90587|[id number] for patient rsuh63147-5EurxFHXRHVSSHTNAejsjadnl C-CDA narrative [id number] WALKER[id number] ZBYAIBLPDJTJCYDJEKLQ6993-44-80K38:00:5 21.2.840.776098.1.72.3.15|1.20.1143 50.1.13.104.2.7.2.727879_[id number] Ada Roman RN [facility] 2023-05-13 10:52:54 jvhl0YmplwUnmw/AOfK4Bgb+CMQsL+Lvk3Sl5r lzJmPxNsUahnP/2nJp9Eld1F7C4071-95-48G3 0:52:54 Report given to CRICKET Caballero [address] SfdbVQ7877-55-52N76:53:10[facility] NoteTXT1.2.840.979584.1.13.104.2.7.2.7 81856|[id number] for patient uolp85104-4GpapFETJLFCHGDDTghzqxavc C-CDA narrative [id number] M Martinez [id number] BHTILVINCWQTYGMKVTTS3412-37-15H54:53:1 01.2.840.425850.1.72.3.15|1.2.840.1143 50.1.13.104.2.7.2.727879_[id number] Delma Xavier RN [facility] 2023-05-13 09:49:04 M78gHtRoBQC8JMPT1wg/T3Zb6OivhSh+n9288O dcv5OO3jsJcjUHDRXJkFeKelAy5511-63-48B1 9:49:04 [address]-4Zidsnroqq[address] VdyfOG4004-79-38R20:52:30[facility] NoteTXT1.2.840.708777.1.13.104.2.7.2.7 00740|[id number] for patient usue29273-1JwhbVULVHYGBHGSVwujhpgze C-CDA narrative text[id number] WIMQWWEEDNVTRZCCYNXR2428-93-18M78:52:3 01.2.840.821832.1.72.3.15|1.2.840.11[address]13[address]104.2.7.2.727879_[id number] [facility] 2023-05-13 09:27:01 v4zs3LOLVBcRWd0CHPXJvkeukkVYNgS1VNvCC2 hwHlkMZ7WoMtQpHbTiVUT/7SYq6045-61-25A7 9:27:01 Pt complaining of heartburn, epigastric/substernal pain since midnight. [facility] gave NTGx2, ASA 325 and 0.1 clonidine. 11112-5Rpfonsuwq department Triage cbveAZ3249-81-36A55:27:45[facility] Triage noteTXT1.2.840.386103.1.13.104.2.7.2.7 83052|[id number] for patient ddge16693-8Dcegurshx department NoteLNNARRATIVEFormatted C-CDA narrative text91 [address] StreetTv[id number] IFLOLJFVBLAYOYDRSJQT0525-77-45Y27:27:4 51.2.840.399355.1.72.3.15|1.2.840.11[address]13[address]104.2.7.2.727879_[id number] [facility] 2023-05-13 09:24:00 HRyHg2tbVpb8+1sDDukPReJOZHaVW4KrIUAVZP RE5wXTB1ykVmOFuDAGvAqtPzF98746-17-36Q0 9:24:00Associated Order(s): EKG-12 Lead ROUTINE ONCEPre-Procedure Diagnose(s): Shortness of breath; Chest pain of uncertain etiologyPost-Procedure Diagnose(s): Shortness of breath; Chest pain of uncertain etiology [facility] Emergency Department NotePatient Name: Zack Zavaleta of : 1955 67 year old maleTreatment Room: [place] [address]ESTE62-36Xdnchbo Record Number: [id number] Care Physician: PATIENT DOES NOT HAVE A PCPPatient Escorted by: Law enforcement [8]Mode of Arrival: EMS - [place] [47]EMS Treatment 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 treatment: Medication (comment)BANKING ASSISTANT treatment comments: see triage notesTravel and Exposure Screening:SymptomsDoes patient have any of these symptoms?: (not recorded)Exposure ScreeningHas patient had contact with someone with a communicable disease in the last month?: (not recorded)Diseases exposed to:: (not recorded)Is Patient ?: (not recorded)Exposure Date: (not recorded)Chief Complaint:Chief ComplaintPatient presents withEpigastric PainHistory of Present Illness:67 yo male with about a month of increased shortness ofbreath, indigestoin symptoms that were mild, worse lying flat, but last night noted bad taste in mouth, pain in chest, and worsened shortness of breath. He has no history of hypertension, CAD, stents, or diabetes. Found to have markedly elevated BP at the snf unit, given aspirin 325mg, NTG SL x 2, and clonidine 0.1mg for the blood pressure. Pain does not radiate. It is non exertional.No recent cough, cold, congestion. Feels like he can't get a full breath of air. Smoker, but none for 4 months as he has been incarcerated.History provided by: PatientPast Medical History/Immunizations:No past medical history on file.Tetanus received in last 5 years: UnknownChildhood immunizations: Lu-dm-fckxLrgnjjxsq:No Known AllergiesPast Social History:Substance & Sexual ActivityNo substance use or sexual activity history on file.Past Surgical History:No past surgical history on file.Review of Systems:Review of SystemsConstitutional: Negative for chills, fatigue and fever.HENT: Negative for congestion, rhinorrhea and sore throat.Eyes: Negative for visual disturbance.Respiratory: Positive for shortness of breath. Negative for chest tightness and wheezing.Cardiovascular: Positive for chest pain. Negative for palpitations and leg swelling.Gastrointestinal: Negative for abdominal pain, constipation, diarrhea, nausea and vomiting.Indigestion, some acid reflux symptoms.Genitourinary: Negative for dysuria, urgency, frequency and hematuria.Musculoskeletal: Negative for back pain, gait problem and neck stiffness.Skin: Negative for rash.Neurological: Negative for dizziness, syncope, weakness, numbness and headaches.Physical Exam:ED Triage Vitals [05/13/23 0927]Weight 90.7 kg (200 lb)Actual or estimated Estimated by patient/family reportHeight 1.778 m (5' 10")BP (!) 150/73Pulse 87Resp 18Temp 36.4 ?C (97.5 ?F)Temp source OralSpO2 98 %Measured on Room airPhysical ExamVitals and nursing note reviewed.Constitutional:General: He is not in acute distress.Appearance: Normal appearance.HENT:Head: Normocephalic and atraumatic.Mouth/Throat:Mouth: Mucous membranes are moist.Eyes:General: No scleral icterus.Extraocular Movements: Extraocular movements intact.Cardiovascular:Rate and Rhythm: Normal rate and regular rhythm.Pulses: Normal pulses.Heart sounds: Normal heart sounds. No murmur heard.Pulmonary:Effort: Pulmonary effort is normal. Prolonged expiration present. No tachypnea or accessory muscle usage.Breath sounds: Decreased air movement present. No wheezing, rhonchi or rales.Abdominal:General: Bowel sounds are normal. There is no distension.Palpations: Abdomen is soft. There is no mass.Tenderness: There is abdominal tenderness (right upper abdomen, mild epigastric). There is no guarding or rebound.Hernia: No hernia is present.Musculoskeletal:General: Normal range of motion.Cervical back: Normal range of motion.Right lower leg: No edema.Left lower leg: No edema.Skin:General: Skin is warm.Capillary Refill: Capillary refill takes less than 2 seconds.Neurological:General: No focal deficit present.Mental Status: He is alert and oriented to person, place, and time.Radiology:XR CHEST 1 VWPreliminary ResultEXAM: XR CHEST 1 VWCOMPARISON: Prior chest radiograph 10/17/2016HISTORY: chest painFINDINGS:Lungs: The lung volumes are normal. Subtle right basilar opacities likelyreflecting atelectatic changes. Elevated right hemidiaphragm. No pleuralabnormalities are detected.Heart/Mediastinum: The cardiac silhouette appears normal in size,unchanged. Calcified aortic arch.Bones and soft tissues: No acute osseous findings.IMPRESSIONRight basilar atelectasis.Preliminary Report Dictated by Resident: Celso Agustin Results:Lab ResultsCOMP. METABOLIC PANEL (34464) - AbnormalResult Value Ref RangeNA 135 135 - 145 mmol/LK 4.1 3.5 - 5.0 mmol/LCL 101 98 - 108 mmol/LCO2 TOTAL 24 23 - 31 mmol/LAGAP 10 2 - 16BUN 18 7 - 23 mg/dLGLUCOSE 109 70 - 110 mg/dLCREATININE 0.87 0.60 - 1.25 mg/dLTOTAL BILI 1.4 (*) 0.1 - 1.1 mg/dLCALCIUM 9.0 8.6 - 10.6 mg/Tyrone PROTEIN 7.6 6.3 - 8.2 g/dLALBUMIN 4.1 3.5 - 5.0 g/dLALK PHOS 73 34 - 122 U/LALTv 31 5 - 50 U/LAST(SGOT) 34 13 - 40 U/LeGFR 95.8 mL/min/1.49s6G-ZFVHYQFF PRO-BNP - AbnormalNT-proBNP 254 <=125 pg/mLCBC WITH DIFF - AbnormalWBC 10.54 4.20 - 10.70 10*3/?LRBC 4.10 (*) 4.26 - 5.52 10*6/?LHGB 13.2 12.2 - 16.4 g/dLHCT 37.7 (*) 38.4 - 49.3 %MCV 92.0 81.7 - 95.6 fLMCH 32.2 26.1 - 32.7 pgMCHC 35.0 31.2 - 35.0 g/dLRDW-SD 42.1 38.5 - 51.6 fLRDW-CV 12.7 12.1 - 15.4 %PLT 180 150 - 328 10*3/?LMPV 9.1 (*) 9.8 - 13.0 fLNRBC/100 WBC 0.0 0.0 - 10.0 /100 WBCsNRBC x10^3 <0.01 10*3/?LGRAN MAT (NEUT) % 78.7 %IMM GRAN % 0.80 %LYMPH % 12.0 %MONO % 7.8 %EOS % 0.4 %BASO % 0.3 %GRAN MAT x10^3(ANC) 8.30 (*) 1.99 - 6.95 10*3/uLIMM GRAN x10^3 0.08 (*) 0.00 - 0.06 10*3/uLLYMPH x10^3 1.27 1.09 - 3.23 10*3/uLMONO x10^3 0.82 0.36 - 1.02 10*3/uLEOS x10^3 0.04 (*) 0.06 - 0.53 10*3/uLBASO x10^3 0.03 0.01 - 0.09 10*3/uLLIPASE - NormalLIPASE 39 0 - 220 U/LTROPONIN I - NormalTROPONIN I 0.004 <=0.034 ng/mLTROPONIN I - NormalTROPONIN I 0.004 <=0.034 ng/mLEKG:If EKG completed, see Procedure Note.Orders and Treatments:Orders Placed This EncounterProceduresXR CHEST 1 VWCOMP. METABOLIC PANEL (99718)LIPASETROPONIN IN-TERMINAL PRO-BNPCBC WITH DIFFTroponin IOrders Placed This EncounterMedicationsfamotidine (PEPCID (PF)) injection 20 mgmaalox:diphenhydrAMINE:lidocaine 2 % viscous 1:1:1 (FIRST-MOUTHWASH BLM) oral suspension 15 mLFirst Provider Eval:ED EventsDate/Time Event User Ufxozhmt68/25/23 0941 Medical Screening Begins HOLDEN WILLIAMSON MD --05/13/23 0941 First Provider Evaluation HOLDEN WILLIAMSON MD --ED COURSEED Course as of 05/13/23 142May [id number] TROPONIN I: 0.004Non cardiac. Treat as gastritis. Follow up blood pressure with unit provider at the half-way.Famotidine BID, maalox prn. [GR]ED Course User Index[GR] Holden Williamson MDDiagnosis/Impression as of 05/13/23 1421Shortness of breathChest pain of uncertain etiologyOther acute gastritis without hemorrhageBlood pressure elevated without history of HTNProcedures:EKG-12 Lead ROUTINE ONCEDate/Time: 05/13/2023 10:02 AMPerformed by: Holden Williamson MDAuthorized by: Holden Williamson MDECG interpreted by ED Physician in the absence of a veneer stock grader: yesPrevious ECG:Previous ECG: UnavailableInterpretation:Interpretati on: normalRate:ECG rate: 69ECG rate assessment: normalRhythm:Rhythm: sinus rhythmEctopy:Ectopy: noneQRS:QRS axis: NormalQRS intervals: NormalQRS conduction: normalST segments:ST segments: NormalT waves:T waves: normalQ waves:Abnormal Q-waves: not presentMDM:Medical Decision MakingIndigestion vs cardiac event vs upper right abdominal pain which could be gastritis, gall bladder stones, or pancreatitis. Shortness of breath with lying flat, and acid reflux symptoms. Check CMP, lipase, CBC, get EKG and chest xray.Also a smoker and has some restricted air movement.Troponin negative. EKG normal. Given GI cocktail, some relief. BP mildly elevated.Low risk HEART score, so observed, repeated troponin and negative, no increase. Will DC with gastritis and follow up to his unit provider regarding blood pressure. Monitoring.Amount and/or Complexity of Data ReviewedLabs: ordered. Decision-making details documented in ED Course.Radiology: ordered.RiskPrescription drug management.Flowsheet Documentation:Scoring Tools:No data recordedHEART Score: 3Disposition/Condition:ED DispositionED DispositionDisch - HomeConditionStableComment--Discharge Medications:Patient's MedicationsNo medications on fileFollow-up:Contact information for follow-upUnit [facility] 1 dayElectronically signed by:Holden Williamson MD05/13/23 1421 60770-2Xqqmekeab Emergency department KtxjAI9742-06-01X26:21:51Physician Emergency department NoteTXT1.2.840.043039.1.13.104.2.7.2.7 74823|[id number] for patient ijjk11527-3Ecrnlkosf department NoteLNNARRATIVEFormatted C-CDA narrative textUT07 Liu [id number] ULXMMWGZTVSUOBKSMSSR3879-85-03S76:21:5 11.2.840.614140.1.72.3.15|1.2.840.11[address]104[address]2.7.2.727879_[id number] [facility]
[2023-09-29] MEDS ORDERED: HYDROCODONE/APAP 10/325 TAB ONE ×2 (01:37→01:44)
[2023-09-29] MEDS ORDERED: predniSONE 20 MG TAB ONE (01:38)
[2023-09-29 01:41] LABS: Absolute Basophils 0.1 K/uL (0-0.5); Absolute Lymphocytes (CBC) 0.6 K/uL (0.7-4.9); Absolute Monocytes 0.7 K/uL (0.1-1.3); Absolute Neutrophil 10.4 K/uL (1.8-8.0); Basophils % 0.5 % (0-1.3); Eosinophils % 0.1 % (0-4.4); Hematocrit 40.1 % (39.6-49.0); MCH 29.7 pg (27.0-35.0); MCHC 32.5 g/dL (32.0-36.0); MCV 91.2 fL (80-100); MPV 6.8 fL (7.6-11.3); Monocytes % 5.7 % (3.3-12.3); Neutrophils % 88.7 % (41.7-73.7); Platelets 495 thou/uL (152-406); RBC Red Blood Cell Count 4.39 M/uL (4.33-5.43); Red Cell Distribution Width 14.5 % (12.1-15.2)
[2023-09-29] MEDS ORDERED: allopurinoL 100 MG TAB ONE (01:56)
[2023-09-29 02:03] LABS: Albumin 2.4 g/dL (3.4-5.0); Albumin/Globulin Ratio 0.4 (1.1-1.8); Anion Gap 12.1 mEq/L (5.0-15.0); Bilirubin Direct 0.5 mg/dL (0-0.2); Bilirubin Indirect, Calculated 0.4 mg/dL (0.2-0.8); Bilirubin Total 0.9 mg/dL (0.2-1.0); Globulin 6.3 g/dL (2.3-3.5); Magnesium 2.7 mg/dL (1.6-2.4); Potassium 4.1 mEq/L (3.5-5.1); Protein, Total 8.7 g/dL (6.4-8.2); Troponin High Sensitivity 7.8 pg/mL (<58.9)
[2023-09-29 04:39] LABS: Sqamous Epithelial <5 /HPF (None Seen); Urine Bacteria None Seen /HPF (<20); Urine Bilirubin NEGATIVE (Negative); Urine Blood Negative (Negative); Urine Clarity Extremely Turbid (Clear); Urine Color Yellow (Yellow); Urine Crystals Unidentified Few /HPF (None Seen); Urine Culture Reflex Order NOT NEEDED; Urine Glucose NEGATIVE (Negative); Urine Ketones NEGATIVE (Negative); Urine Micro Reflex YN NO BILL MICROSCOPIC; Urine Mucus Slight /HPF (None Seen); Urine Nitrite NEGATIVE (Negative); Urine Protein 1+ (Negative); Urine RBC <5 /HPF (None Seen); Urine Urobilinogen 3+ (Normal); Urine WBC <5 /HPF (<5); Urine pH 5.5 (5.0-7.0)
--- NOTE | 2023-09-29 04:47 | EDPHYS ---
Physician Documentation [facility] Name: Leobardo Tejeda Age: 67 yrs Sex: Male : 1955 Arrival Date: 09/29/2023 Time: 01:03 Bed 2 Private MD: ED Physician Moshe Thurston HPI: 09/28 02:44 This 67 yrs old Male presents to ER via EMS with complaints of foot pain. rt 02:44 Patient presents to the ED with reported pain in both of her feet. The patient rt attributes this to his gout. States is been worsening, but, has not been taking his allopurinol pain medications. Patient states that he had a fall due to the pain but denies injury associated with that. Denies other acute complaints at this time. He does state that he was on the ground for a while. Symptoms are moderate in severity, no other aggravating alleviating factors.. Historical: - Allergies: 01:17 No Known Allergies; ha1 - Home Meds: 01:17 Allopurinol Oral [Active]; ha1 - PMHx: 01:17 Distant drug abuse; Gout; ha1 - Immunization history:: Adult Immunizations up to date. - Infectious Disease History:: Denies. - Social history:: Smoking status: Patient reports the use of cigarette tobacco products, smokes two packs cigarettes per day. - Family history:: not pertinent. ROS: 02:44 Constitutional: Negative for fever, chills, and weight loss, Cardiovascular: Negative rt for chest pain, palpitations, and edema, Respiratory: Negative for shortness of breath, cough, wheezing, and pleuritic chest pain, Abdomen/GI: Negative for abdominal pain, nausea, vomiting, diarrhea, and constipation, Skin: Negative for injury, rash, and discoloration, Neuro: Negative for headache, weakness, numbness, tingling, and seizure, Psych: Negative for depression, anxiety, suicide ideation, homicidal ideation, and hallucinations, 02:44 MS/extremity: Positive for pain, Negative for injury or acute deformity, Exam: 02:44 Constitutional: This is a well developed, well nourished patient who is awake, alert, rt and in no acute distress. Head/Face: Normocephalic, atraumatic. Chest/axilla: Normal chest wall appearance and motion. Nontender with no deformity. No lesions are appreciated. Cardiovascular: Regular rate and rhythm with a normal S1 and S2. No gallops, murmurs, or rubs. Normal PMI, no JVD. No pulse deficits. Respiratory: Lungs have equal breath sounds bilaterally, clear to auscultation and percussion. No rales, rhonchi or wheezes noted. No increased work of breathing, no retractions or nasal flaring. Abdomen/GI: Soft, non-tender, with normal bowel sounds. No distension or tympany. No guarding or rebound. No evidence of tenderness throughout. Skin: Warm, dry with normal turgor. Normal color with no rashes, no lesions, and no evidence of cellulitis. MS/ Extremity: Pulses equal, no cyanosis. Neurovascular intact. Full, normal range of motion. 02:44 ECG was reviewed by the Attending Physician. Vital Signs: 01:06 BP 136 / 91; Pulse 97; Resp 16 S; Temp 98.1; Pulse Ox 100% on R/A; Weight 117.93 kg; ha1 Height 5 ft. 9 in. ; 02:20 BP 151 / 76; Pulse 93; Resp 16 S; Pulse Ox 100% on R/A; ha1 03:30 BP 140 / 74; Pulse 93; Resp 16 S; Pulse Ox 98% on R/A; ha1 04:00 BP 143 / 76; Pulse 93; Resp 17 S; Pulse Ox 96% on R/A; ha1 04:10 BP 131 / 107; Pulse 90; Resp 18; Pulse Ox 96% on R/A; jb4 05:00 BP 128 / 72; Pulse 86; Resp 17 S; Temp 98.2; Pulse Ox 97% on R/A; ha1 01:06 Body Mass Index 38.39 (117.93 kg, 175.26 cm) ha1 MDM: 01:06 Patient medically screened. rt 06:55 Differential Diagnosis Gout, electrolyte disturbance. Data reviewed: vital signs, rt nurses notes, lab test result(s). Consideration of Admission/Observation Escalation of care including admission/observation considered. Mild elevated creatinine, not meeting admission criteria. Patient with gout. He was improved with treatment in the ED. At this time, there is no indications for admission to the hospital. I discussed this at length with the patient. Patient instructed to follow-up as an outpatient.. I considered the following discharge prescriptions or medication management in the emergency department Medications were administered in the Emergency Department. See MAR. Counseling: I had a detailed discussion with the patient and/or guardian regarding the historical points, exam findings, and any diagnostic results supporting the discharge/admit diagnosis, lab results, the need for outpatient follow up. Response to treatment: the patient's symptoms have markedly improved after treatment. 09/28 01:08 Order name: Basic Metabolic Panel; Complete Time: 02:36 rt 09/28 01:08 Order name: CBC with Diff; Complete Time: 02:36 rt 09/28 01:08 Order name: LFT's; Complete Time: 02:36 rt 09/28 01:08 Order name: Magnesium; Complete Time: 02:36 rt 09/28 01:08 Order name: Troponin HS; Complete Time: 02:36 rt 09/28 01:08 Order name: CPK; Complete Time: 02:36 rt 09/28 01:08 Order name: UAM; Complete Time: 04:40 rt 09/28 01:08 Order name: Cardiac monitoring; Complete Time: 01:33 rt 09/28 01:08 Order name: EKG - Nurse/Tech; Complete Time: 01:33 rt 09/28 01:08 Order name: IV Saline Lock; Complete Time: 01:33 rt 09/28 01:08 Order name: Labs collected and sent; Complete Time: 01:33 rt 09/28 01:08 Order name: O2 Per Protocol; Complete Time: 01:33 rt 09/28 01:08 Order name: O2 Sat Monitoring; Complete Time: 01:33 rt EC:44 Rate is 95 beats/min. Rhythm is regular, Normal Sinus Rhythm with No ectopy. QRS [place] rt is Normal. IA interval is normal. QRS interval is normal. QT interval is normal. No Q waves. T waves are Normal. No ST changes noted. Interpreted by me. Administered Medications: 01:53 Drug: [place] PO 10 mg-325 mg 1 tabs PO once Route: PO; ha1 02:25 Follow up: Response: No adverse reaction; Marked relief of symptoms; Pain is decreased; ha1 RASS: Alert and Calm (0) 01:53 Drug: predniSONE PO 40 mg PO once Route: PO; ha1 02:25 Follow up: Response: No adverse reaction ha1 02:00 Drug: Allopurinol PO 200 mg PO once Route: PO; ha1 02:25 Follow up: Response: No adverse reaction; Marked relief of symptoms ha1 05:21 Drug: HYDROcodone-acetaminophen PO 5 mg-325 mg 1 tabs PO once Route: PO; ha1 05:50 Follow up: Response: No adverse reaction; Marked relief of symptoms; Pain is decreased; ha1 RASS: Alert and Calm (0) Disposition Summary: 09/29/23 04:47 Discharge Ordered Notes: Location: Home rt Problem: an acute exacerbation rt Symptoms: have improved rt Condition: Stable rt Diagnosis - Gout, unspecified rt Followup: rt - With: Private Physician - When: 2 - 3 days - Reason: Discharge Instructions: - Discharge Summary Sheet rt - Gout rt Forms: - Medication Reconciliation Form rt - Antibiotic Education rt - Prescription Opioid Use rt - Patient Portal Instructions rt - Leadership Thank You Letter rt Prescriptions: - acetaminophen-codeine 300-30 mg Oral tablet - take 1 tablet ORAL route every 6 hours; 18 tablet; Refills: 0, Product rt Selection Permitted - Allopurinol 100 mg Oral Tablet - take 1 tablet ORAL route once daily; 30 tablet; Refills: 0, Product Selection rt Permitted - Prednisone 20 mg Oral Tablet - take 2 tablets ORAL route once daily for 5 days; 10 tablet; Refills: 0, Product rt Selection Permitted Signatures: Dispatcher [employer] Soumya Campbell RN RN ha1 Moshe Thurston MD MD rt Corrections: (The following items were deleted from the chart) 01:09 01:09 BASIC METABOLIC PANEL+C.LAB.BRZ ordered. EDMS EDMS 01:09 01:09 CBC+H.LAB.BRZ ordered. EDMS EDMS 01:09 01:09 HEPATIC FUNCTION+C.LAB.BRZ ordered. EDMS EDMS 01:09 01:09 MAGNESIUM+C.LAB.BRZ ordered. EDMS EDMS 01:09 01:09 Troponin High Sensitivity+C.LAB.BRZ ordered. EDMS EDMS 01: 01:09 CREATINE PHOSPHOKINASE+C.LAB.BRZ ordered. EDMS EDMS 01:09 01:09 Urinalysis W/Microscopic+U.LAB.BRZ ordered. EDMS EDMS
--- NOTE | 2023-09-29 04:47 | ER ---
Nurse's Notes [facility] Name: Leobardo Tejeda Age: 67 yrs Sex: Male : 1955 Arrival Date: 09/29/2023 Time: 01:03 Bed 2 Private MD: Diagnosis: Gout, unspecified Presentation: 09/28 01:06 Chief complaint: EMS states: reports slipping and falling. NO LOC. reports pain on his ha1 feet due to problems with gout. 01:06 Coronavirus screen: Vaccine status: Patient reports receiving the 2nd dose of the covid ha1 vaccine. Ebola Screen: No symptoms or risks identified at this time. Initial Sepsis Screen: Does the patient meet any 2 criteria? No. Patient's initial sepsis screen is negative. Does the patient have a suspected source of infection? No. Patient's initial sepsis screen is negative. Risk Assessment: Do you want to hurt yourself or someone else? Patient reports no desire to harm self or others. Onset of symptoms was September 29, 2023. 01:06 Method Of Arrival: EMS: [facility] 01:06 Acuity: MERLY 3 ha1 Triage Assessment: 01:06 General: Appears uncomfortable, Behavior is cooperative, anxious. Pain: Complains of ha1 pain in right foot and left foot Pain radiates to right leg and left leg Pain at worst was 10 out of 10 on a pain scale. Quality of pain is described as throbbing. Neuro: Level of Consciousness is awake, alert, obeys commands, Oriented to person, place, time, situation. Cardiovascular: Patient's skin is warm and dry. Respiratory: Airway is patent Respiratory effort is even, unlabored, Respiratory pattern is regular, symmetrical. GI: No signs and/or symptoms were reported involving the gastrointestinal system. Abdomen is round non-distended. Derm: Skin is pink, warm \T\ dry. Musculoskeletal: Reports pain in right foot, left foot, right leg and left leg. Historical: - Allergies: : No Known Allergies; ha1 - Home Meds: : Allopurinol Oral [Active]; ha1 - PMHx: :17 Distant drug abuse; Gout; ha1 - Immunization history:: Adult Immunizations up to date. - Infectious Disease History:: Denies. - Social history:: Smoking status: Patient reports the use of cigarette tobacco products, smokes two packs cigarettes per day. - Family history:: not pertinent. Screenin:10 [facility] ED Fall Risk Assessment (Adult) History of falling in the last 3 months, ha1 including since admission Yes- single mechanical fall (1 pt) Confusion or Disorientation No (0 pts) Intoxicated or Sedated No (0 pts) Impaired Gait Yes (1 pt) Mobility Assist Device Used Yes (1 pt) Altered Elimination No (0 pt) Score/Fall Risk Level 3 or more points = High Risk Oriented to surroundings, Maintained a safe environment, Educated pt \T\ family on fall prevention, incl call for assistance when getting out of bed, Provided non-skid footwear, Hourly rounding (assess needs \T\ fall precautionary measures) done. 02:48 Abuse screen: Denies threats or abuse. Denies injuries from another. Nutritional ha1 screening: No deficits noted. Tuberculosis screening: No symptoms or risk factors identified. Assessment: 01:06 Reassessment: see triage assessment. ha1 02:20 Reassessment: eyes closed. Respiratory: Airway is patent Respiratory effort is even, ha1 unlabored, Respiratory pattern is regular, symmetrical. 03:20 Reassessment: Patient and/or family updated on plan of care and expected duration. Pain ha1 level reassessed. Patient is alert, oriented x 3, equal unlabored respirations, skin warm/dry/pink. 04:20 Reassessment: Patient and/or family updated on plan of care and expected duration. Pain ha1 level reassessed. Patient is alert, oriented x 3, equal unlabored respirations, skin warm/dry/pink. pain 4/10 Patient states feeling better. Patient states symptoms have improved. 05:00 Reassessment: patient states I am unable to walk call an ambulance for me. discharge ha1 pending . Notified charge nurse and datawarehouse developer. 05:45 Reassessment: patient unable to get on wheelchair to be discharge. CRICKET Berman, was ha1 notified. 05:50 Reassessment: 3 RNs at bedside attempting to get patient out of bed into wheelchair and cm10 patient unable to get up from stretcher and transfer to wheel chair. Patient attempting to stand on his own from stretcher and patient unable to stand. 06:18 Reassessment: [facility] ETA 30 minutes. cm10 Vital Signs: 01:06 BP 136 / 91; Pulse 97; Resp 16 S; Temp 98.1; Pulse Ox 100% on R/A; Weight 117.93 kg; ha1 Height 5 ft. 9 in. ; 02:20 BP 151 / 76; Pulse 93; Resp 16 S; Pulse Ox 100% on R/A; ha1 03:30 BP 140 / 74; Pulse 93; Resp 16 S; Pulse Ox 98% on R/A; ha1 04:00 BP 143 / 76; Pulse 93; Resp 17 S; Pulse Ox 96% on R/A; ha1 04:10 BP 131 / 107; Pulse 90; Resp 18; Pulse Ox 96% on R/A; jb4 05:00 BP 128 / 72; Pulse 86; Resp 17 S; Temp 98.2; Pulse Ox 97% on R/A; ha1 01:06 Body Mass Index 38.39 (117.93 kg, 175.26 cm) ha1 ED Course: 01:06 Patient arrived in ED. cm10 01:06 Moshe Thurston MD is Attending Physician. rt 01:06 Arm band placed on right wrist. ha1 01:06 Patient has correct armband on for positive identification. Placed in gown. Bed in low ha1 position. Call light in reach. Side rails up X2. 01:06 Client placed on continuous cardiac and pulse oximetry monitoring. NIBP monitoring ha1 applied. usability engineer on. Door closed. Noise minimized. Warm blanket given. Pillow given. 01:17 Triage completed. ha1 01:31 Initial lab(s) drawn, by me, sent to lab. Inserted saline lock: 18 gauge in right jb4 antecubital area, using aseptic technique. Blood collected. 06:59 No provider procedures requiring assistance completed. IV discontinued, intact, ha1 bleeding controlled, No redness/swelling at site. Pressure dressing applied. 07:00 Provided Education on: medication administration . ha1 Administered Medications: 01:53 Drug: [place] PO 10 mg-325 mg 1 tabs PO once Route: PO; ha1 02:25 Follow up: Response: No adverse reaction; Marked relief of symptoms; Pain is decreased; ha1 RASS: Alert and Calm (0) 01:53 Drug: predniSONE PO 40 mg PO once Route: PO; ha1 02:25 Follow up: Response: No adverse reaction ha1 02:00 Drug: Allopurinol PO 200 mg PO once Route: PO; ha1 02:25 Follow up: Response: No adverse reaction; Marked relief of symptoms ha1 05:21 Drug: HYDROcodone-acetaminophen PO 5 mg-325 mg 1 tabs PO once Route: PO; ha1 05:50 Follow up: Response: No adverse reaction; Marked relief of symptoms; Pain is decreased; ha1 RASS: Alert and Calm (0) Medication: 02:49 VIS not applicable for this client. ha1 Outcome: 04:47 Discharge ordered by MD. rt 06:59 Discharged to home via ambulance, ha1 06:59 Condition: stable 06:59 Discharge instructions given to patient, Instructed on discharge instructions, follow up and referral plans. medication usage, Demonstrated understanding of instructions, follow-up care, medications, Prescriptions given X 3, 07:01 Patient left the ED. ha1 Signatures: Junito Holloway RN RN jb4 Soumya Womack RN RN ha1 Moshe Thurston MD MD rt Adri Xavier RN RN cm10 Corrections: (The following items were deleted from the chart) 06:01 05:45 Reassessment: patient refused to get on wheel chair to be discharge. sam Berman RN, was notified ha1 06:39 05:45 Reassessment: patient unable to get on wheel chair to be discharge. sam Berman RN, was notified ha1
[2023-09-29] MEDS ORDERED: HYDROCODONE/APAP 5/325 MG TAB ONE (05:16)
[2023-09-29 07:47] VITALS: BP 128/72; TEMP 98.2; O2SAT 97
--- NOTE | 2023-09-30 13:21 | EKG ---
Test Date: 2023-09-29 Test Time: 01:32:58 Film Drying Machine Operator: BF MEASUREMENT RESULTS: Intervals: Rate: 95 TN: 134 QRSD: 76 QT: 352 QTc: 442 [place]: P: 73 TN: 134 QRS: 78 T: 84 INTERPRETIVE STATEMENTS: Normal sinus rhythm Normal ECG No previous ECG available for comparison Electronically Signed On 09-30-23 13:17:36 CDT by Fco Perdomo
== END 2023-09-29 07:01 | disposition home or self-care (01) ==
LOC: ER 01:03
DX: M10.9 Gout, unspecified (principal); F17.210 Nicotine dependence, cigarettes, uncomplicated
CPT/HCPCS: 93005; 85025; 81001; 80048; 36415; 83735; 82550; 80076; 84484; 99285; J7512

== ENCOUNTER 2023-10-01 14:13 | Emergency (ER) | payer OTHER ==
--- OUTSIDE RECORDS SUMMARY | 2023-10-01 14:19 | XMS REPORT | Continuity of Care Document ---
Author Name Unknown Address [address] [place] [address] 1 [address] [place] [address] [facility] thconnect Address [address] [facility] [address] [place] [address] Care Team Providers Care Wet Mixer Name Role Phone PCP, PATIENT DOES NOT HAVE A Primary Care Physic demarcus Unavailable HOLDEN WILLIAMSON Attending Clinician Unavailable Holden Williamson MD Attending Clinician HOLDEN WILLIAMSON Admitting Clinician Unavailable Payers Payer Name Policy Type Policy Number Effective Date Expirati on Date Source MEDICARE PART A \\T\\ B [id number] 2022 00:00:00 MEDICAID OF [place] [id number] 2023 00:00:00 Allergies, Adverse Reactions, Alerts Allergy Name Allergy Type Status Severity Reaction(s) Onset Date Inactive Date Treating Clinician Comments Source NO KNOWN ALLERGIE S Drug Class Active [facility] Social History Social Habit Start Date Stop Date Quantity Comments Source Sexual orientation U [facility] Sex Assigned At 1955 00:00:00 1955 00:00:00 [facility] Smoking Status Start Date Stop Date Source Tobacco smoking consumption unknown [facility] Medications Ordered Medication Name Filled Medication Name Start Date Stop Date Current Medication? Ordering Clinician Indication Dosage Frequency Signature (SIG) Comments Components Source maalox:diph enhydrAMINE :lidocaine 2 % viscous 1:1:1 (FIRST-MOUT HWASH BLM) oral suspension 15 mL 2022-05 18:45: 00 05-13 18:56 :00 No 15mL 15 mL, Oral, ONCE, 1 dose, On Sat05/13/23 at 1245, Routine [facility] famotidine (PEPCID (PF)) injection 20 mg 2022-05 16:00: 00 05-13 15:58 :00 No 20mg 20 mg, Slow IV Push, ONCE, 1 dose, On Sat05/13/23 at 1000, ISI [facility] Immunizations Ordered Immunization Name Filled Immunization Name Date Status Comments Source SARS-COV-2 COVID-19 MODERNA 12+ YRS VACCINE Unknown Completed [facility] SARS-COV-2 COVID-19 MODERNA 12+ YRS VACCINE Unknown Completed [facility] Vital Signs Vital Name Observation Time Observation Value Comments S ource Systolic blood pressure 2023-05-13 19:30:00 154 mm[Hg] [facility] Diastolic blood pressure 2023-05-13 19:30:00 90 mm[Hg] [facility] Heart rate 2023-05-13 19:30:00 75 /min [facility] Respiratory rate 2023-05-13 19:30:00 18 /min [facility] Oxygen saturation in Arterial blood by Pulse oximetry 2023-05-13 19:30:00 97 /min [facility] Body temperature 2023-05-13 15:27:00 36.39 Cindy [facility] Body height 2023-05-13 15:27:00 177.8 cm [facility] Body weight 2023-05-13 15:27:00 90.719 kg [facility] BMI 2023-05-13 15:27:00 28.70 kg/m2 [facility] Procedures Procedure Date / Time Performed Performing Clinicia n Source TROPONIN I 2023-05-13 19:02:00 Holden Williamson [facility] HB ECG ROUTINE & RHYTHM STRIP 2023-05-13 15:59:09 Holden Williamson [facility] LIPASE 2023-05-13 15:58:00 Holden Williamson [facility] TROPONIN I 2023-05-13 15:58:00 Holden Williamson [facility] COMP. METABOLIC PANEL (93599) 2023-05-13 15:58:00 Holden Williamson [facility] CBC WITH DIFF 2023-05-13 15:58:00 Holden Williamson [facility] N-TERMINAL PRO-BNP 2023-05-13 15:58:00 Holden Williamson [facility] Encounters Start Date/Time End Date/Time Encounter Type Admission Type Attending Clinicians Care Facility Care Department Encounter ID Source 2023-05-13 09:26:00 2023-05-13 14:38:00 Emergency X HOLDEN WILLIAMSON [facility] ERT [id number] [facility] 2023-05-13 09:26:00 2023-05-13 14:38:00 Emergency Holden Williamson [facility] 1.2.840.114 350.1.13.10 4.2.7.2.686 [id number] [facility] Results Test Description Test Time Test Comments Results Result Co mments Source [facility] (41350)2023-05-13 17:06:52* Test Item Value Reference Range Interpretation Comme nts NA (test code = 6091174886) 135 mmol/L 135-145 K (test code = 3496728670) 4.1 mmol/L 3.5-5.0 CL (test code = 5334426513) 101 mmol/L 98-108 CO2 TOTAL (test code = 7734818444) 24 mmol/L 23-31 AGAP (test code = 1286686282) 10 2-16 BUN (test code = 0424983863) 18 mg/dL 7-23 GLUCOSE (test code = 6711444545) 109 mg/dL 70-110 CREATININE (test code = 3772459805) 0.87 mg/dL 0.60-1.25 TOTAL BILI (test code = 9610491087) 1.4 mg/dL 0.1-1.1 H CALCIUM (test code = 6422795232) 9.0 mg/dL 8.6-10.6 T PROTEIN (test code = 1905849336) 7.6 g/dL 6.3-8.2 ALBUMIN (test code = 6855691867) 4.1 g/dL 3.5-5.0 ALK PHOS (test code = 9320888222) 73 U/L 34-122 ALTv (test code = 1742-6) 31 U/L 5-50 AST(SGOT) (test code = 3483098669) 34 U/L 13-40 eGFR (test code = 38753-8) 95.8 mL/min/1.73m2 CKD-EPI eGFR (2020). Assuming creatinine has been stable day-to-day for at least three months, the eGFR indicates Category G1 (>= 90 mL/min/1.73 m2) Lab Interpretation (test code = 21429-4) Abnormal [facility] [id number] 16:44:31* Test Item Value Reference Range Interpretation Comme nts TROPONIN I (test code = 0188102000) 0.004 ng/mL <=0.034 SARA (test code = [...] of biotin. Lab Interpretation (test code = 16023-5) Normal [facility] KGM-QOD0929-60-25 16:42:40* Test Item Value Reference Range Interpretation Comme nts NT-proBNP (test code = 02507-9) 254 pg/mL <=125 SARA (test code = SARA) Result Indeterminate-Consid er causes of NT-proBNP elevation other than Heart failure such as acute coronary syndrome, pulmonary embolism, pulmonary hypertension, sepsis, stroke, and renal dysfunction. Lab Interpretation (test code = 66198-2) Abnormal [facility]2023-12-25 16:32:27* Test Item Value Reference Range Interpretation Comme nts LIPASE (test code = 7000542502) 39 U/L 0-220 Lab Interpretation (test cod e = 59686-3) Normal [facility] WITH WREY4847-81-50 16:24:49* Test Item Value Reference Range Interpretation [...] 35.0 g/dL 31.2-35.0 RDW-SD (test code = 54227-2) 42.1 fL 38.5-51.6 RDW-CV (test code = 788-0) 12.7 % 12.1-15.4 PLT (test code = 777-3) 180 See_Comment [Automated messa ge] The system which generated this result transmitted reference range: 150 - 328 10*3/?L. The reference range was not used to interpret this result as normal/abnormal. MPV (test code = 89215-6) 9.1 fL 9.8-13.0 L NRBC/100 WBC (test code = 2517317909) 0.0 See_Comment [Automated [place] ssage] The system which generated this result transmitted reference range: 0.0 - 10.0 /100 WBCs. The reference range was not used to interpret this result as normal/abnormal. NRBC x10^3 (test code = 2918778098) See_Comment [Automated messa ge] The system which generated this result transmitted reference range: 10*3/?L. The reference range was not used to interpret this result as normal/abnormal. GRAN MAT (NEUT) % (test code = 770-8) 78.7 % IMM GRAN % (test code = 9372686797) 0.80 % LYMPH % (test code = 736-9) 12.0 % MONO % (test code = 5905-5) 7.8 % EOS % (test code = 713-8) 0.4 % BASO % (test code = 706-2) 0.3 % GRAN MAT x10^3(ANC) (test code = 0791762212) 8.30 10*3/uL 1.99-6.95 H IMM GRAN x10^3 (test code = 7076777327) 0.08 10*3/uL 0.00-0.06 H LYMPH x10^3 (test code = 731-0) 1.27 10*3/uL 1.09-3.23 MONO x10^3 (test code = 742-7) 0.82 10*3/uL 0.36-1.02 EOS x10^3 (test code = 711-2) 0.04 10*3/uL 0.06-0.53 L BASO x10^3 (test code = 704-7) 0.03 10*3/uL 0.01-0.09 Lab Interpretation (test code = 53407-9) Abnormal [facility] Notes Date/Time Note Provider Source 2023-05-13 14:38:22 +JqZa6cBdBxyW3sJAlURWsaqraDXS1YRHBKRGf 3gqonqXCoLfMLweX0JBT0eDMMo6263-65-17M9 4:38:22 Pt D/C in custody of officers. AOx4, VS stable, no ataxia noted. Officers given D/C paperwork. S/S relieved with no apparent distress noted at this time. 94811-7Umusshfaw department XqeqDY7397-13-81G03:38:37[facility] NoteTXT1.2.840.936567.1.13.104.2.7.2.7 48505|[id number] for patient axte92001-0GfxaHIXRESFMGSTTphhepbnv C-CDA narrative text[id number] RIAZIHPKYLPADZFUAOKX5042-87-81R94:38:3 71.2.840.816988.1.72.3.15|1.2.840.1143 50.1.13.104.2.7.2.727879_[id number] [facility] 2023-05-13 11:00:24 GxuYJTPe9cItQNzKkL39SgSoT97CwCdc8ch2rI f8QdlDsls4KIU6GGFailD6eOPG3161-20-41W3 1:00:24 Report received from CRICKET Xavier 16681-1Gyawneqfd department EesnEY4853-98-78J31:00:52Emergency department NoteTXT1.2.840.180181.1.13.104.2.7.2.7 58810|[id number] for patient exvq73688-5VyalTJKAJZSLFYFCnyrekmxc C-CDA narrative [id number] WALKER[id number] ZLXDFHQKRQCOQODVLVBM3081-31-81R62:00:5 21.2.840.229186.1.72.3.15|1.20.1143 50.1.13.104.2.7.2.727879_[id number] Ada Roman RN [facility] 2023-05-13 10:52:54 ckuf2ZexzwFeui/ATyJ2Uxh+CMQsL+Weq7Ka0g lzJmPxNsUahnP/9fFs9Nkk0K6L4925-28-09I5 0:52:54 Report given to CRICKET Caballero [address] NmbgIP9305-70-21R65:53:10[facility] NoteTXT1.2.840.609053.1.13.104.2.7.2.7 10609|[id number] for patient brtf35906-7AsewGJIKGLOIUZFVzvqdalwj C-CDA narrative [id number] M Martinez [id number] NQNOFTPDPVECHOGGYCGE6389-38-08I79:53:1 01.2.840.256600.1.72.3.15|1.2.840.1143 50.1.13.104.2.7.2.727879_[id number] Delma Xavier RN [facility] 2023-05-13 09:49:04 Q84cGlNwDCB1YPPJ6iq/K5Fy6ZupuGq+f7872M bsv8NR7unKnoQGVKHWkRxTmhOq4367-21-15W1 9:49:04 [address]-9Djevvxqwk[address] DmxbZX5310-16-30D26:52:30[facility] NoteTXT1.2.840.014253.1.13.104.2.7.2.7 15063|[id number] for patient pqnn92265-9GkllCEGXEOILYFMCeieuvgdb C-CDA narrative text[address]TXTX7755577555US GUPQDPJHVXLVFYZSBLXF4111-52-51U55:52:3 01.2.840.935409.1.72.3.15|1.2.840.1143 50.1.13.104.2.7.2.727879_[id number] [facility] 2023-05-13 09:27:01 f4tv2GHGOIoSCr9LTVYGiguxgkANOzA3YBkWG3 qvBlpRC1AaRbMfRdIfKQK/3ZWt3396-59-32N9 9:27:01 Pt complaining of heartburn, epigastric/substernal pain since midnight. [facility] gave NTGx2, ASA 325 and 0.1 clonidine. 60099-2Mnzibjkii department Triage vqcpXV1352-30-54A87:27:45[facility] department Triage noteTXT1.2.840.591792.1.13.104.2.7.2.7 98008|[id number] for patient dbdr61413-5Unvcukrre department NoteLNNARRATIVEFormatted C-CDA narrative text[id number] WMVQEBDSXFJAMYZXLIRT3843-10-51X28:27:4 51.2.840.365355.1.72.3.15|1.2.840.1143 50.1.13.104.2.7.2.727879_[id number] [facility] 2023-05-13 09:24:00 IBoZk0lkGfc5+7nJYahUZiBKJVtFV2VtRKVWVJ YR4yTBE0mmRrJRyAXLvJjyCcU28969-64-64Q0 9:24:00Associated Order(s): EKG-12 Lead ROUTINE ONCEPre-Procedure Diagnose(s): Shortness of breath; Chest pain of uncertain etiologyPost-Procedure Diagnose(s): Shortness of breath; Chest pain of uncertain etiology [facility] Emergency Department NotePatient Name: Zack Zavaleta of : 1955 67 year old maleTreatment Room: [place] [address]/DECG38-69Jvcmfpl Record Number: [id number] Care Physician: PATIENT DOES NOT HAVE A PCPPatient Escorted by: Law enforcement [8]Mode of Arrival: EMS - [place] [47]EMS Treatment Prior to ED Arrival:TACTICAL DEBRIEFER treatment: Medication (comment)TACTICAL DEBRIEFER treatment comments: see triage notesTravel and Exposure [...] to have markedly elevated BP at the alf unit, given aspirin 325mg, NTG SL x [...] received in last 5 years: UnknownChildhood immunizations: My-op-phapRzsyseluc:No Known AllergiesPast Social History:Substance & Sexual ActivityNo [...] Resident: Celso Agustin Results:Lab ResultsCOMP. METABOLIC PANEL (46573) - AbnormalResult Value Ref RangeNA 135 135 [...] U/LAST(SGOT) 34 13 - 40 U/LeGFR 95.8 mL/min/1.18e8B-XSCXYTZK PRO-BNP - AbnormalNT-proBNP 254 <=125 pg/mLCBC WITH [...] This EncounterProceduresXR CHEST 1 VWCOMP. METABOLIC PANEL (44073)LIPASETROPONIN IN-TERMINAL PRO-BNPCBC WITH DIFFTroponin IOrders Placed This EncounterMedicationsfamotidine (PEPCID (PF)) injection 20 mgmaalox:diphenhydrAMINE:lidocaine 2 % viscous 1:1:1 (FIRST-MOUTHWASH BLM) oral suspension 15 mLFirst Provider Eval:ED EventsDate/Time Event User Tbfgchts09/25/23 0941 Medical Screening Begins HOLDEN WILLIAMSON MD --05/13/23 0941 First Provider Evaluation HOLDEN WILLIAMSON MD --ED COURSEED Course as of 05/13/23 142May [id number] TROPONIN I: 0.004Non cardiac. Treat as gastritis. Follow up blood pressure with unit provider at the [facility].Famotidine BID, maalox prn. [GR]ED Course User Index[GR] Holden Williamson MDDiagnosis/Impression as of 05/13/23 1421Shortness of breathChest pain of uncertain etiologyOther acute gastritis without hemorrhageBlood pressure elevated without history of HTNProcedures:EKG-12 Lead ROUTINE ONCEDate/Time: 05/13/2023 10:02 AMPerformed by: Holden Williamson MDAuthorized by: Holden Williamson MDECG interpreted by ED Physician in the absence of a founder / ceo: yesPrevious ECG:Previous ECG: UnavailableInterpretation:Interpretati on: normalRate:ECG rate: [...] on fileFollow-up:Contact information for follow-upUnit Provider [facility] 1 dayElectronically signed by:Holden Williamson MD05/13/23 1421 69503-8Purlhuawj Emergency department AyrpUW8554-66-36Z52:21:51Physician Emergency department NoteTXT1.2.840.253913.1.13.104.2.7.2.7 18249|[id number] for patient wrlw16413-1Cgggfhkxu department NoteLNNARRATIVEFormatted C-CDA narrative textUT16 Cook [id number] QIDEVCALEXPZAKDUOERH0528-35-16J33:21:5 11.2.840.103699.1.72.3.15|1.2.840.1143 50.1.13.104.2.7.2.727879_[id number] [facility]
[2023-10-01] MEDS ORDERED: COLCHICINE 0.6 MG TAB ONE (14:23)
[2023-10-01] MEDS ORDERED: HYDROCODONE/APAP 10/325 TAB ONE (14:23)
--- NOTE | 2023-10-01 14:49 | EDPHYS ---
Physician Documentation [facility] Name: Leobardo Tejeda Age: 67 yrs Sex: Male : 1955 Arrival Date: 10/01/2023 Time: 14:13 Bed 19 Private MD: ED Physician Jett Peter HPI: 09/30 14:46 This 67 yrs old Male presents to ER via EMS with complaints of gout. kb 14:46 Pt is a 67 year old male who presents for pain to bilateral feet, left elbow and left kb thumb that started last month which he attributes to gout. States this feels exactly the same as previous gout attacks. Was seen here 2 days ago and given prescriptions for allopurinol, tylenol with codeine and prednisone but has not had a change to fill the prescriptions. States the norco he got when he was here helped the pain, but it came back. Denies any new symptoms, fever, fall. . Historical: - Allergies: 14:18 No Known Allergies; bp - Home Meds: 14:18 Allopurinol Oral [Active]; bp - PMHx: 14:18 Distant drug abuse; Gout; bp - Immunization history:: Adult Immunizations unknown. - Infectious Disease History:: Denies. - Social history:: Smoking status: unknown. ROS: 14:22 Constitutional: As per HPI kb Exam: 14:45 Constitutional: This is a well developed, well nourished patient who is awake, alert, kb and in no acute distress. Head/Face: Normocephalic, atraumatic. ENT: Moist Mucous membranes Cardiovascular: Regular rate Respiratory: Respirations even and unlabored. No increased work of breathing. Talking in full sentences Skin: Warm, dry with normal turgor. Normal color. Neuro: Awake and alert, GCS 15, oriented to person, place, time, and situation. Moves all extremities. Normal gait. 14:45 Musculoskeletal/extremity: Extremities: grossly normal except: noted in the left foot and right foot: pain, swelling, noted in the left thumb: pain, swelling, ROM: intact in all extremities, Circulation is intact in all extremities. Sensation intact. Vital Signs: 14:17 BP 129 / 84; Pulse 85; Resp 16; Temp 98; Pulse Ox 97% ; bp 17:51 BP 131 / 79; Pulse 75; Resp 18; Temp 98; Pulse Ox 96% ; bp MDM: 14:17 Patient medically screened. kb 14:45 Differential Diagnosis gout, cellulitis. Data reviewed: vital signs, nurses notes. kb Historians other than the Patient: EMS: [facility]. Counseling: I had a detailed discussion with the patient and/or guardian regarding the historical points, exam findings, and any diagnostic results supporting the discharge/admit diagnosis, the need for outpatient follow up, a family practitioner, to return to the emergency department if symptoms worsen or persist or if there are any questions or concerns that arise at home. 14:47 External Records Reviewed: labs done here on 09/29/23 reviewed. Pt has prescriptions kb with him. Administered Medications: 14:29 Drug: Marana PO 10 mg-325 mg 1 tabs PO once Route: PO; bp 17:52 Follow up: Response: No adverse reaction bp 14:29 Drug: Colcrys PO 1.2 mg PO once Route: PO; bp 17:52 Follow up: Response: No adverse reaction bp Disposition Summary: 10/01/23 14:48 Discharge Ordered Notes: Location: Home kb Condition: Stable kb Diagnosis - Gout, unspecified kb Followup: kb - With: Emergency Department - When: As needed - Reason: Worsening of condition Followup: kb - With: Private Physician - When: 2 - 3 days - Reason: Recheck today's complaints, Continuance of care, Re-evaluation by your physician Discharge Instructions: - Discharge Summary Sheet kb - Low-Purine Eating Plan kb - Gout, Wxqf-fb-Rtfd kb Forms: - Medication Reconciliation Form kb - Antibiotic Education kb - Prescription Opioid Use kb - Patient Portal Instructions kb - Leadership Thank You Letter kb Signatures: Manuela Miner FNP-C FNP-Paulino Nicole, RN RN bp
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
[2023-10-01 19:13] VITALS: BP 131/79; TEMP 98; O2SAT 96
== END 2023-10-01 17:53 | disposition home or self-care (01) ==
LOC: ER 14:13
DX: M10.9 Gout, unspecified (principal)
CPT/HCPCS: 99284

== ENCOUNTER 2023-10-01 20:28 | Emergency (ER) | payer OTHER ==
--- OUTSIDE RECORDS SUMMARY | 2023-10-01 20:31 | XMS REPORT | Continuity of Care Document ---
Author Name Unknown Address [address] [place] [address] 1 [address] [place] [address] [facility] thconnect Address [address] 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 Name Role Phone PCP, PATIENT DOES NOT HAVE A Primary Care Physic deamrcus Unavailable HOLDEN WILLIAMSON Attending Clinician Unavailable Holden Williamson MD Attending Clinician HOLDEN WILLIAMSON Admitting Clinician Unavailable Payers Payer Name Policy Type Policy Number Effective Date Expirati on Date Source MEDICARE PART A \\T\\ B [id number] 2022 00:00:00 MEDICAID OF [place] [id number] 2023 00:00:00 Allergies, Adverse Reactions, Alerts Allergy Name Allergy Type Status Severity Reaction(s) Onset Date Inactive Date Treating Clinician Comments Source NO KNOWN ALLERGIE S Drug Class Active [facility] Social History Social Habit Start Date Stop Date Quantity Comments Source Sexual orientation U [facility] Sex Assigned At 1955 00:00:00 1955 00:00:00 [facility] Smoking Status Start Date Stop Date Source Tobacco smoking consumption unknown [facility] Medications Ordered Medication Name Filled Medication Name Start Date Stop Date Current Medication? Ordering Clinician Indication Dosage Frequency Signature (SIG) Comments Components Source maalox:diph enhydrAMINE :lidocaine 2 % viscous 1:1:1 (FIRST-MOUT HWASH BLM) oral suspension 15 mL 2022-05 18:45: 00 05-13 18:56 :00 No 15mL 15 mL, Oral, ONCE, 1 dose, On Sat05/13/23 at 1245, Routine [facility] famotidine (PEPCID (PF)) injection 20 mg 2022-05 16:00: 00 05-13 15:58 :00 No 20mg 20 mg, Slow IV Push, ONCE, 1 dose, On Sat05/13/23 at 1000, ISI [facility] Immunizations Ordered Immunization Name Filled Immunization Name Date Status Comments Source SARS-COV-2 COVID-19 MODERNA 12+ YRS VACCINE Unknown Completed [facility] SARS-COV-2 COVID-19 MODERNA 12+ YRS VACCINE Unknown Completed [facility] Vital Signs Vital Name Observation Time Observation Value Comments S ource Systolic blood pressure 2023-05-13 19:30:00 154 mm[Hg] [facility] Diastolic blood pressure 2023-05-13 19:30:00 90 mm[Hg] [facility] Heart rate 2023-05-13 19:30:00 75 /min [facility] Respiratory rate 2023-05-13 19:30:00 18 /min [facility] Oxygen saturation in Arterial blood by Pulse oximetry 2023-05-13 19:30:00 97 /min [facility] Body temperature 2023-05-13 15:27:00 36.39 Cindy [facility] Body height 2023-05-13 15:27:00 177.8 cm [facility] Body weight 2023-05-13 15:27:00 90.719 kg [facility] BMI 2023-05-13 15:27:00 28.70 kg/m2 [facility] Procedures Procedure Date / Time Performed Performing Clinicia n Source TROPONIN I 2023-05-13 19:02:00 Holden Williamson [facility] HB ECG ROUTINE & RHYTHM STRIP 2023-05-13 15:59:09 Holden Williamson [facility] LIPASE 2023-05-13 15:58:00 Holden Williamson [facility] TROPONIN I 2023-05-13 15:58:00 Holden Williamson [facility] COMP. METABOLIC PANEL (23760) 2023-05-13 15:58:00 Holden Williamson [facility] CBC WITH DIFF 2023-05-13 15:58:00 Holden Williamson [facility] N-TERMINAL PRO-BNP 2023-05-13 15:58:00 Holden Williamson [facility] Encounters Start Date/Time End Date/Time Encounter Type Admission Type Attending Clinicians Care Facility Care Department Encounter ID Source 2023-05-13 09:26:00 2023-05-13 14:38:00 Emergency X HOLDEN WILLIAMSON [facility] ERT [id number] [facility] 2023-05-13 09:26:00 2023-05-13 14:38:00 Emergency Holden Williamson [facility] [id number] 350.1.13.10 4.2.7.2.686 [id number] [facility] Results Test Description Test Time Test Comments Results Result Co mments Source [facility] (93678[facility]2023-05-13 17:06:52* Test Item Value Reference Range Interpretation Comme nts NA (test code = 8467137554) 135 mmol/L 135-145 K (test code = 1972564395) 4.1 mmol/L 3.5-5.0 CL (test code = 5301434188) 101 mmol/L 98-108 CO2 TOTAL (test code = 9694327262) 24 mmol/L 23-31 AGAP (test code = 2116527260) 10 2-16 BUN (test code = 6109266041) 18 mg/dL 7-23 GLUCOSE (test code = 3540739006) 109 mg/dL 70-110 CREATININE (test code = 4572613338) 0.87 mg/dL 0.60-1.25 TOTAL BILI (test code = 4423270858) 1.4 mg/dL 0.1-1.1 H CALCIUM (test code = 5375638962) 9.0 mg/dL 8.6-10.6 T PROTEIN (test code = 8651565435) 7.6 g/dL 6.3-8.2 ALBUMIN (test code = 0182649774) 4.1 g/dL 3.5-5.0 ALK PHOS (test code = 4008769935) 73 U/L 34-122 ALTv (test code = 1742-6) 31 U/L 5-50 AST(SGOT) (test code = 4746364085) 34 U/L 13-40 eGFR (test code = 85207-0) 95.8 mL/min/1.73m2 CKD-EPI eGFR (2020). Assuming creatinine has been stable day-to-day for at least three months, the eGFR indicates Category G1 (>= 90 mL/min/1.73 m2) Lab Interpretation (test code = 94659-2) [facility]normal [facility] [id number] 16:44:31* Test Item Value Reference Range Interpretation Comme nts TROPONIN I (test code = 6930120443) 0.004 ng/mL <=0.034 SARA (test code = [...] of biotin. Lab Interpretation (test code = 33054-2) Normal [facility] YKW-PWW7981-54-25 16:42:40* Test Item Value Reference Range Interpretation Comme nts NT-proBNP (test code = 42982-1) 254 pg/mL <=125 SARA (test code = SARA) Result Indeterminate-Consid er causes of NT-proBNP elevation other than Heart failure such as acute coronary syndrome, pulmonary embolism, pulmonary hypertension, sepsis, stroke, and renal dysfunction. Lab Interpretation (test code = 87112-3) Abnormal [facility] 16:32:27* Test Item Value Reference Range Interpretation Comme nts LIPASE (test code = 7288100833) 39 U/L 0-220 Lab Interpretation (test cod e = 19714-8) Normal [facility] WITH QZIB5392-77-99 16:24:49* Test Item Value Reference Range Interpretation [...] 35.0 g/dL 31.2-35.0 RDW-SD (test code = 50197-1) 42.1 fL 38.5-51.6 RDW-CV (test code = 788-0) 12.7 % 12.1-15.4 PLT (test code = 777-3) 180 See_Comment [Automated messa ge] The system which generated this result transmitted reference range: 150 - 328 10*3/?L. The reference range was not used to interpret this result as normal/abnormal. MPV (test code = 74168-6) 9.1 fL 9.8-13.0 L NRBC/100 WBC (test code = 9484470111) 0.0 See_Comment [Automated [employer] ssage] The system which generated this result transmitted reference range: 0.0 - 10.0 /100 WBCs. The reference range was not used to interpret this result as normal/abnormal. NRBC x10^3 (test code = 9017039249) See_Comment [Automated messa ge] The system which generated this result transmitted reference range: 10*3/?L. The reference range was not used to interpret this result as normal/abnormal. GRAN MAT (NEUT) % (test code = 770-8) 78.7 % IMM GRAN % (test code = 4262940530) 0.80 % LYMPH % (test code = 736-9) 12.0 % MONO % (test code = 5905-5) 7.8 % EOS % (test code = 713-8) 0.4 % BASO % (test code = 706-2) 0.3 % GRAN MAT x10^3(ANC) (test code = 9699564236) 8.30 10*3/uL 1.99-6.95 H IMM GRAN x10^3 (test code = 1853124161) 0.08 10*3/uL 0.00-0.06 H LYMPH x10^3 (test code = 731-0) 1.27 10*3/uL 1.09-3.23 MONO x10^3 (test code = 742-7) 0.82 10*3/uL 0.36-1.02 EOS x10^3 (test code = 711-2) 0.04 10*3/uL 0.06-0.53 L BASO x10^3 (test code = 704-7) 0.03 10*3/uL 0.01-0.09 Lab Interpretation (test code = 14325-2) Abnormal [facility] Notes Date/Time Note Provider Source 2023-05-13 14:38:22 +RzMl7hRgZmvC1rALtJPIlwjmuPIK3QZUXKAQt 7jykktUWwSbBYiuS3WDL7iUYGw0919-97-33V4 4:38:22 Pt D/C in custody of officers. AOx4, VS stable, no ataxia noted. Officers given D/C paperwork. S/S relieved with no apparent distress noted at this time. 87350-1Jofbpbhza department OafkZZ3678-42-30U27:38:37[facility] NoteTXT1.2.840.007917.1.13.104.2.7.2.7 48806|[id number] for patient poht48122-4FynbAGAGZLXHUHXDyipxbvek C-CDA narrative text[id number] NMCVQFTKNCWCJYLJQRCZ4241-43-47P58:38:3 71.2.840.832588.1.72.3.15|1.2.840.1143 50.1.13.104.2.7.2.727879_[id number] [facility] 2023-05-13 11:00:24 WpgBLTRe6nInTUiLgQ55GtKwH15AwVad8un1gR x4LjdQowb3JRM8TZHabtT4iIAZ8244-08-01M3 1:00:24 Report received from CRICKET Xavier 80505-9Qyvvuzbzy department CtlqYA9260-07-44E93:00:52Emergency department NoteTXT1.2.840.541444.1.13.104.2.7.2.7 48844|[id number] for patient rjgl58976-2UarqNVXFVVDXLJPTrhmhjrcs C-CDA narrative lvmy221075540Rsrgbusravanthi WALKER[id number] GSVDWBKTUFPYFBMUCWSY2619-52-39K54:00:5 21.2.840.601550.1.72.3.15|1.20.1143 50.1.13.104.2.7.2.727879_[id number] Ada Roman RN [facility] 2023-05-13 10:52:54 luma6NzydtYclo/TLbJ2Jcj+CMQsL+Vwx1Hz7o lzJmPxNsUahnP/9tTu8Fhz7Q2Q6096-84-22J5 0:52:54 Report given to CRICKET Caballero [address] AlkoHY3476-84-37F91:53:10[facility] NoteTXT1.2.840.702706.1.13.104.2.7.2.7 98942|[id number] for patient wjpq43545-5BkrhJSBNAPZOPUULghcxnkxi C-CDA narrative ndbf722137117Eiqnu M Martinez [id number] PGULKTDXGYQGHBBGVCGO6012-29-21Z84:53:1 01.2.840.796893.1.72.3.15|1.2.840.1143 50.1.13.104.2.7.2.727879_[id number] Delma Xavier RN [facility] 2023-05-13 09:49:04 P78qZxWlTEQ8WGAF3wv/K1Gt4SxqkAb+t6174M kqb2DW9afYjzQDUHPViJpIvrGd9215-68-53L4 9:49:04 [address]-5Xohblugej[address] OajwZL7757-66-80K95:52:30[facility] NoteTXT1.2.840.410187.1.13.104.2.7.2.7 83869|[id number] for patient bbeh66183-8FzkfAKRIFOIKAXCIdvnszofz C-CDA narrative text[address]TXTX[address]5577555US DJMYDYVYYSSOSCFEOXMQ3821-76-75X33:52:3 01.2.840.155494.1.72.3.15|1.2.840.1143 50.1.13.104.2.7.2.727879_[id number] [facility] 2023-05-13 09:27:01 k9jz0BEEJAtFFu3YSYZGycwzrwZTKnD5NQuEB9 xrGliEL4LyCmDyBeUlDHW/1PQu0311-84-62Z5 9:27:01 Pt complaining of heartburn, epigastric/substernal pain since midnight. [facility] gave NTGx2, ASA 325 and 0.1 clonidine. 81636-2Jabrgafrq department Triage efscLU8716-19-63O45:27:45Emenew [facility] department Triage noteTXT1.2.840.926753.1.13.104.2.7.2.7 77018|[id number] for patient hcdr52020-7Areidmiei department NoteLNNARRATIVEFormatted C-CDA narrative text[id number] MLLWDVGCUNVFFSHIJRNX4578-62-50Y69:27:4 51.2.840.414309.1.72.3.15|1.2.840.1143 50.1.13.104.2.7.2.727879_[id number] [facility] 2023-05-13 09:24:00 VNyHa2jsDot2+4bZPyhWNyTFJXyBD0KwNJWBZA DJ9iBFJ4mfZoTQbTTVgZynYsR59926-38-67I1 9:24:00Associated Order(s): EKG-12 Lead ROUTINE ONCEPre-Procedure Diagnose(s): Shortness of breath; Chest pain of uncertain etiologyPost-Procedure Diagnose(s): Shortness of breath; Chest pain of uncertain etiology [facility] Emergency Department NotePatient Name: Zack Zavaleta of : 1955 67 year old maleTreatment Room: [place] [address]/YIXS15-80Ezbmpfq Record Number: [id number] Care Physician: PATIENT DOES NOT HAVE A PCPPatient Escorted by: Law enforcement [8]Mode of Arrival: EMS - [place] [47]EMS Treatment Prior to ED Arrival:LUBRICATION 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 METABOLIC PANEL (12497) - AbnormalResult Value Ref RangeNA 135 135 [...] U/LAST(SGOT) 34 13 - 40 U/LeGFR 95.8 mL/min/1.07c6V-RPPCBEWS PRO-BNP - AbnormalNT-proBNP 254 <=125 pg/mLCBC WITH [...] This EncounterProceduresXR CHEST 1 VWCOMP. METABOLIC PANEL (48630)LIPASETROPONIN IN-TERMINAL PRO-BNPCBC WITH DIFFTroponin IOrders Placed This EncounterMedicationsfamotidine (PEPCID (PF)) injection 20 mgmaalox:diphenhydrAMINE:lidocaine 2 % viscous 1:1:1 (FIRST-MOUTHWASH BLM) oral suspension 15 mLFirst Provider Eval:ED EventsDate/Time Event User Qlwqpsym99/25/23 0941 Medical Screening Begins HOLDEN WILLIAMSON MD --05/13/23 0941 First Provider Evaluation HOLDEN WILLIAMSON MD --ED COURSEED Course as of 05/13/23 142May [id number] TROPONIN I: 0.004Non cardiac. Treat as gastritis. Follow up blood pressure with unit provider [facility].Famotidine BID, maalox prn. [GR]ED Course User Index[GR] Holden Williamson MDDiagnosis/Impression as of 05/13/23 1421Shortness of breathChest pain of uncertain etiologyOther acute gastritis without hemorrhageBlood pressure elevated without history of HTNProcedures:EKG-12 Lead ROUTINE ONCEDate/Time: 05/13/2023 10:02 AMPerformed by: Holden Williamson MDAuthorized by: Holden Williamson MDECG interpreted by ED Physician in the absence of a inspector multifocal lens: yesPrevious ECG:Previous ECG: UnavailableInterpretation:Interpretati on: normalRate:ECG rate: [...] on fileFollow-up:Contact information for follow-upUnit Provider [facility] 1 dayElectronically signed by:Holden Williamson MD05/13/23 1421 46224-8Dcqljoxsq Emergency department RvphEN5439-35-95L03:21:51Physician Emergency department NoteTXT1.2.840.769941.1.13.104.2.7.2.7 62097|[id number] for patient wbpl25332-0Axmxnibgm department NoteLNNARRATIVEFormatted C-CDA narrative textUT64 Brown [id number] CUDWCPJQAYQVSETWSILV2565-58-74V06:21:5 11.2.840.422543.1.72.3.15|1.2.840.1143 50.1.13.104.2.7.2.727879_[id number] [facility]
--- NOTE | 2023-10-01 21:33 | RAD REPORT ---
EXAM DESCRIPTION: US - Extrem Venous W Compress Roberto Carlos - 10/01/2023 9:25 pm CLINICAL HISTORY: pain Bilateral leg edema and swelling. COMPARISON: <Comparisons> TECHNIQUE: Real-time sonographic interrogation of the left and right lower extremity deep venous sys tems was performed. FINDINGS: Normal compressibility, flow augmentation, phasic flow and spontaneous flow is identified in both the left and right lower extremity deep venous systems. IMPRESSION: No sonographic evidence of left or right lower extremity deep venous thrombosis.
[2023-10-01] MEDS ORDERED: KETOROLAC 30 MG/ML INJ ONE (21:37)
[2023-10-01] MEDS ORDERED: HYDROCODONE/APAP 10/325 TAB ONE (21:37)
[2023-10-01 22:06] LABS: Absolute Basophils 0.1 K/uL (0-0.5); Absolute Lymphocytes (CBC) 0.9 K/uL (0.7-4.9); Absolute Monocytes 0.6 K/uL (0.1-1.3); Absolute Neutrophil 5.5 K/uL (1.8-8.0); Basophils % 0.8 % (0-1.3); Eosinophils % 0.5 % (0-4.4); Hematocrit 38.3 % (39.6-49.0); Hemoglobin 12.9 g/dL (13.6-17.9); Lymphocytes % 12.3 % (15.3-44.8); MCH 30.6 pg (27.0-35.0); MCHC 33.6 g/dL (32.0-36.0); MCV 91.1 fL (80-100); MPV 6.6 fL (7.6-11.3); Monocytes % 8.9 % (3.3-12.3); Neutrophils % 77.5 % (41.7-73.7); Nucleated Red Blood Cells % 0.1 % (0-0); Platelets 490 thou/uL (152-406); RBC Red Blood Cell Count 4.21 M/uL (4.33-5.43); Red Cell Distribution Width 14.5 % (12.1-15.2)
[2023-10-01 22:13] LABS: Albumin 2.5 g/dL (3.4-5.0); Albumin/Globulin Ratio 0.4 (1.1-1.8); Anion Gap 7.9 mEq/L (5.0-15.0); Bilirubin Direct 0.2 mg/dL (0-0.2); Bilirubin Indirect, Calculated 0.3 mg/dL (0.2-0.8); Bilirubin Total 0.5 mg/dL (0.2-1.0); C-Reactive Protein 99.6 mg/L (<3.00); Globulin 5.7 g/dL (2.3-3.5); Magnesium 2.7 mg/dL (1.6-2.4); Potassium 3.9 mEq/L (3.5-5.1); Protein, Total 8.2 g/dL (6.4-8.2); Troponin High Sensitivity 4.7 pg/mL (<58.9); Uric Acid 7.2 mg/dL (3.5-7.2)
--- NOTE | 2023-10-01 22:34 | RAD REPORT ---
EXAM DESCRIPTION: RAD - Chest Single View - 10/01/2023 10:17 pm CLINICAL HISTORY: PAIN #5 Chest pain. COMPARISON: <Comparisons> FINDINGS: Portable technique limits examination quality. The lungs are grossly clear. The heart is normal in size. No displaced fractures. IMPRESSION: No acute intrathoracic process suspected.
[2023-10-01 22:36] LABS: PT Prothrombin Time 15.6 SECONDS (9.5-12.5); PTT, Activated Partial Thromb 42.3 SECONDS (24.3-36.9); Protime INR 1.43
[2023-10-01] MEDS ORDERED: HYDROCODONE/APAP 5/325 MG TAB ONE (23:05)
--- NOTE | 2023-10-01 23:17 | ER ---
Nurse's Notes [facility] Name: Leobardo Tejeda Age: 67 yrs Sex: Male : 1955 Arrival Date: 10/01/2023 Time: 20:28 Bed 6 Private MD: Diagnosis: Bilateral foot pain, bilateral lower extremity swelling, ;Bilateral inflammatory arthritis, polyarticular inflammatory arthritis Presentation: 09/30 20:32 Chief complaint: Patient states: PT JUST DISCHARGED FROM ER. STATES HE IS BACK HERE FOR j7 PAIN MEDS AND HE NEEDS A PLACE TO STAY THE NIGHT. Coronavirus screen: At this time, the client does not indicate any symptoms associated with coronavirus-19. Ebola Screen: No symptoms or risks identified at this time. Initial Sepsis Screen: Does the patient meet any 2 criteria? No. Patient's initial sepsis screen is negative. Does the patient have a suspected source of infection? No. Patient's initial sepsis screen is negative. Risk Assessment: Do you want to hurt yourself or someone else? Patient reports no desire to harm self or others. Note PT GIVEN PRESCRIPTIONS FOR PAIN AND HIS GOUT. STATES HE CAN'T PICK IT UP AND HE NEEDS SOMEONE TO HELP HIM. 20:32 Method Of Arrival: Wheelchair j7 20:32 Acuity: MERLY 5 jj7 Triage Assessment: 20:39 General: Appears in no apparent distress. comfortable, Behavior is calm, cooperative, jj7 appropriate for age. Pain: Complains of pain in right foot and left foot. Musculoskeletal: Reports pain in right foot and left foot. Historical: - Allergies: 20:39 No Known Allergies; jj7 - PMHx: 20:39 Distant drug abuse; Gout; jj7 - PSHx: 20:39 None; jj7 - Immunization history:: Adult Immunizations up to date, Client reports receiving the 2nd dose of the Covid vaccine, Flu vaccine is up to date. - Infectious Disease History:: Denies. - Social history:: Smoking status: Patient reports the use of cigarette tobacco products, smokes one pack cigarettes per day. Patient/guardian denies using alcohol, street drugs, IV drugs. - Family history:: not pertinent. Screenin:40 [facility] ED Fall Risk Assessment (Adult) History of falling in the last 3 months, rv including since admission No falls in past 3 months (0 pts) Score/Fall Risk Level 0 - 2 = Low Risk Oriented to surroundings, Maintained a safe environment, Educated pt \T\ family on fall prevention, incl call for assistance when getting out of bed, Assessed \T\ reinforced patient's understanding of fall precautions. Abuse screen: Denies threats or abuse. Denies injuries from another. Nutritional screening: No deficits noted. Tuberculosis screening: No symptoms or risk factors identified. Assessment: 21:40 General: Appears comfortable, Behavior is calm, cooperative. Pain: Complains of pain in rv left foot and right foot. Cardiovascular: Capillary refill < 3 seconds Patient's skin is warm and dry. Respiratory: Airway is patent Respiratory effort is even, unlabored. Derm: Skin is intact. Vital Signs: 20:32 BP 154 / 94; Pulse 90; Resp 18; Pulse Ox 100% ; Weight 113.4 kg; Height 5 ft. 10 in. ; jj7 Pain 10/10; 22:00 BP 140 / 89; Pulse 74; Resp 20; Pulse Ox 95% on R/A; me1 23:17 BP 152 / 91; Pulse 74; Resp 20; Pulse Ox 99% on R/A; me1 20:32 Body Mass Index 35.87 (113.40 kg, 177.8 cm) jj7 20:32 Pain Scale: Adult jj7 Shelby Coma Score: 21:40 Eye Response: spontaneous(4). Motor Response: obeys commands(6). Verbal Response: rv oriented(5). Total: 15. 23:05 Eye Response: spontaneous(4). Motor Response: obeys commands(6). Verbal Response: sp4 oriented(5). Total: 15. ED Course: 20:31 Patient arrived in ED. mg5 20:34 Jon Matthews MD is Attending Physician. sp4 20:39 Triage completed. jj7 20:39 Arm band placed on right wrist. jj7 21:20 Dereje Perez, CRICKET is Primary Nurse. rv 21:27 Extrem Venous W Compress Roberto Carlos In Process Unspecified. EDMS 21:40 Patient has correct armband on for positive identification. Client placed on continuous rv cardiac and pulse oximetry monitoring. NIBP monitoring applied. 21:40 No provider procedures requiring assistance completed. Initial lab(s) drawn, by me, rv sent to lab. EKG done, by ED staff, reviewed by Jon Matthews MD. Inserted saline lock: 20 gauge in right antecubital area, using aseptic technique. Blood collected. 22:19 Chest Single View In Process Unspecified. EDMS 23:25 IV discontinued, intact, bleeding controlled, No redness/swelling at site. Pressure rv dressing applied. 10/01 06:40 XRAY Chest (1 view) In Process Unspecified. EDMS Administered Medications: 09/30 21:40 Drug: [place] PO 10 mg-325 mg 1 tabs PO once Route: PO; me1 23:02 Follow up: Response: No adverse reaction; Pain is decreased me1 21:40 Drug: Ketorolac IVP 30 mg IVP once Route: IVP; Site: right antecubital; me1 23:02 Follow up: Response: No adverse reaction; Pain is decreased me1 23:05 Drug: HYDROcodone-acetaminophen PO 5 mg-325 mg 2 tabs PO once Route: PO; me1 23:17 Follow up: Response: No adverse reaction; Pain is decreased me1 Medication: 21:40 VIS not applicable for this client. rv Outcome: 23:16 Discharge ordered by MD. carpenter 23:24 Discharged to home via wheelchair, rv 23:24 Condition: good 23:24 Discharge instructions given to patient, Instructed on discharge instructions, follow up and referral plans. Demonstrated understanding of instructions, follow-up care, 23:25 Patient left the ED. rv Signatures: Dispatcher [employer] EDDereje Sanchez RN RN rv Johnson, Juwairiyah RN RN jj7 Jon Matthews MD MD sp4 Patricia Morel RN RN me1 Azalea Fink mg5
--- NOTE | 2023-10-01 23:17 | EDPHYS ---
Physician Documentation [facility] Name: Leobardo Tejeda Age: 67 yrs Sex: Male : 1955 Arrival Date: 10/01/2023 Time: 20:28 Bed 6 Private MD: ED Physician Jon Matthews HPI: 09/30 20:34 This 67 yrs old Male presents to ER via Unassigned with complaints of Feet sp4 Swelling - Butt numb unable to stand. 23:04 67-year-old male presents for the second time today secondary to complaint of bilateral sp4 foot pain and swelling. Patient was here on 09/29/2023 and was diagnosed with acute gouty arthritis and prescribed prednisone, allopurinol, Tylenol 3.. Patient was here again on 10/01/2023 at 2 PM and was given colchicine and [place] and discharged home. Patient states he did not leave from the waiting area but instead check seen again for persistent bilateral lower extremity pain and swelling. Patient states the pain has been present for the past several days.. 23:05 . sp4 Historical: - Allergies: 20:39 No Known Allergies; jj7 - PMHx: 20:39 Distant drug abuse; Gout; jj7 - PSHx: 20:39 None; jj7 - Immunization history:: Adult Immunizations up to date, Client reports receiving the 2nd dose of the Covid vaccine, Flu vaccine is up to date. - Infectious Disease History:: Denies. - Social history:: Smoking status: Patient reports the use of cigarette tobacco products, smokes one pack cigarettes per day. Patient/guardian denies using alcohol, street drugs, IV drugs. - Family history:: not pertinent. ROS: 23:05 Constitutional: Negative for fever, chills, and weight loss, positive bilateral lower sp4 extremity pain and swelling. 23:05 All other systems are negative, Exam: 22:01 Constitutional: This is a well developed, well nourished patient who is awake, alert, sp4 and in no acute distress. Head/Face: Normocephalic, atraumatic. Eyes: Pupils equal round and reactive to light, extra-ocular motions intact. Lids and lashes normal. Conjunctiva and sclera are not injected. Cornea within normal limits. Periorbital areas with no swelling, redness, or edema. ENT: Nares patent. No nasal discharge, no septal abnormalities noted. Tympanic membranes are normal and external auditory canals are clear. Oropharynx with no redness, swelling, or masses, exudates, or evidence of obstruction, uvula midline. Mucous membranes moist. Neck: Trachea midline, no thyromegaly or masses palpated, and no cervical lymphadenopathy. Supple, full range of motion without nuchal rigidity, or vertebral point tenderness. Chest/axilla: Normal chest wall appearance and motion. Nontender with no deformity. No lesions are appreciated. Cardiovascular: Regular rate and rhythm with a normal S1 and S2. No gallops, murmurs, or rubs. Normal PMI, no JVD. No pulse deficits. Bilateral lower extremity mild swelling Respiratory: Lungs have equal breath sounds bilaterally, clear to auscultation and percussion. No rales, rhonchi or wheezes noted. No increased work of breathing, no retractions or nasal flaring. Abdomen/GI: Soft, with normal bowel sounds. No distension or tympany. No guarding or rebound. No evidence of tenderness throughout. Back: No spinal tenderness. No costovertebral tenderness. Skin: Warm, dry with normal turgor. Normal color with no rashes, no lesions, and no evidence of cellulitis. MS/ Extremity: Pulses equal, no cyanosis. Neurovascular intact. Full, normal range of motion. Bilateral mild foot swelling, intact peripheral pulses. Neuro: Awake and alert, GCS 15, oriented to person, place, time, and situation. Cranial nerves II-XII grossly intact. Motor strength 5/5 in all extremities. Sensory grossly intact. Psych: Awake, alert, with orientation to person, place and time. Behavior, mood, and affect are within normal limits 22:01 ECG was reviewed by the Attending Physician. EKG at 2144 normal sinus rhythm with normal EKG , EKG rate 76 bpm Vital Signs: 20:32 BP 154 / 94; Pulse 90; Resp 18; Pulse Ox 100% ; Weight 113.4 kg; Height 5 ft. 10 in. ; jj7 Pain 10; 22:00 BP 140 / 89; Pulse 74; Resp 20; Pulse Ox 95% on R/A; me1 23:17 BP 152 / 91; Pulse 74; Resp 20; Pulse Ox 99% on R/A; me1 20:32 Body Mass Index 35.87 (113.40 kg, 177.8 cm) jj7 20:32 Pain Scale: Adult jj7 Eileen Coma Score: 21:40 Eye Response: spontaneous(4). Motor Response: obeys commands(6). Verbal Response: rv oriented(5). Total: 15. 23:05 Eye Response: spontaneous(4). Motor Response: obeys commands(6). Verbal Response: sp4 oriented(5). Total: 15. MDM: 20:57 Patient medically screened. sp4 22:57 ED course: EXAM DESCRIPTION: RAD - Chest Single View - 10/01/2023 10:17 pm CLINICAL sp4 HISTORY: PAIN #5 Chest pain. COMPARISON: FINDINGS: Portable technique limits examination quality. The lungs are grossly clear. The heart is normal in size. No displaced fractures. IMPRESSION: No acute intrathoracic process suspected.. 22:57 ED course: EXAM DESCRIPTION: US - Extrem Venous W Compress Roberto Carlos - 10/01/2023 9:25 pm sp4 CLINICAL HISTORY: pain Bilateral leg edema and swelling. COMPARISON: TECHNIQUE: Real-time sonographic interrogation of the left and right lower extremity deep venous systems was performed. FINDINGS: Normal compressibility, flow augmentation, phasic flow and spontaneous flow is identified in both the left and right lower extremity deep venous systems. IMPRESSION: No sonographic evidence of left or right lower extremity deep venous thrombosis.. 23:03 ED course: Prescriptions from 09/29/2023 acetaminophen-codeine 300-30 mg Oral tablet sp4 take 1 tablet ORAL route every 6 hours; 18 tablet; Refills: 0 rt Allopurinol 100 mg Oral Tablet take 1 tablet ORAL route once daily; 30 tablet; Refills: 0 rt Prednisone 20 mg Oral Tablet take 2 tablets ORAL route once daily for 5 days; 10 tablet;. 23:12 Differential Diagnosis altered mental status, sepsis, flu, Congestive heart failure, sp4 fluid retention, acute gouty arthritis. Data reviewed: vital signs, nurses notes, old medical records, EKG, radiologic studies, doppler, plain films. Consideration of Admission/Observation Escalation of care including admission/observation considered. ED course: Based on the patient's workup today patient does not have sign of emergent medical condition that would warrant hospitalization. Patient does not have acute DVT by ultrasound, there is no sign of heart failure or renal insufficiency, CRP is elevated which may suggest acute inflammatory arthritis however white cells are normal and uric acid is normal. Lactic acid is normal. Patient has preserved peripheral pulses to bilateral lower extremities. Patient was informed that at this time there is no emergent medical condition and would warrant hospitalization. Patient was informed that he is stable for discharge from the emergency department.. 23:12 ED course: Patient will be advised to continue medications that he was prescribed on sp4 09/29/2023.. 09/30 21:48 Order name: Basic Metabolic Panel EDMS 09/30 21:48 Order name: Liver (Hepatic) Function EDMS 09/30 21:48 Order name: Uric Acid EDMS 09/30 21:48 Order name: Creatine Phosphokinase EDMS 09/30 21:48 Order name: Troponin High Sensitivity EDMS 09/30 21:48 Order name: NT PRO-BNP EDMS 09/30 21:48 Order name: C-Reactive Protein EDMS 09/30 21:48 Order name: Magnesium EDMS 09/30 21:48 Order name: Lactate w/ 2H reflex if indic. EDMS 09/30 21:48 Order name: CBC with Automated Diff EDMS 09/30 21:48 Order name: Protime (+INR) EDMS 09/30 21:48 Order name: PTT, Activated Partial Thromb EDMS 09/30 22:13 Order name: Basic Metabolic Panel; Complete Time: 22:30 EDMS 09/30 22:13 Order name: Liver (Hepatic) Function; Complete Time: 22:30 EDMS 09/30 22:13 Order name: Uric Acid; Complete Time: 22:30 EDMS 09/30 22:13 Order name: Creatine Phosphokinase; Complete Time: 22:30 EDMS 09/30 22:13 Order name: Troponin High Sensitivity; Complete Time: 22:30 EDMS 09/30 22:13 Order name: NT PRO-BNP; Complete Time: 22:30 EDMS 09/30 22:13 Order name: C-Reactive Protein; Complete Time: 22:30 EDMS 09/30 22:13 Order name: Magnesium; Complete Time: 22:30 EDMS 09/30 22:13 Order name: CBC with Automated Diff; Complete Time: 22:30 EDMS 09/30 22:13 Order name: Lactate w/ 2H reflex if indic.; Complete Time: 22:30 EDMS 09/30 22:37 Order name: Protime (+INR); Complete Time: 22:48 EDMS 09/30 22:37 Order name: PTT, Activated Partial Thromb; Complete Time: 22:48 EDMS 09/30 20:56 Order name: XRAY Chest (1 view) 4 09/30 20:57 Order name: Extrem Venous W Compression Roberto Carlos US 4 09/30 20:59 Order name: Chest Single View EDME 09/30 21:01 Order name: Extrem Venous W Compress Roberto Carlos [facility] 09/30 21:34 Order name: US; Complete Time: 21:55 EDME 09/30 22:35 Order name: RAD; Complete Time: 22:48 EDME 09/30 20:56 Order name: Cardiac monitoring; Complete Time: 21:42 4 09/30 20:56 Order name: EKG - Nurse/Tech; Complete Time: 21:42 sp4 09/30 20:56 Order name: IV Saline Lock; Complete Time: 21:42 4 09/30 20:56 Order name: Labs collected and sent; Complete Time: 21:42 [facility] 09/30 20:56 Order name: O2 Per Protocol; Complete Time: 21:42 sp4 09/30 20:56 Order name: O2 Sat Monitoring; Complete Time: 21:42 sp4 EC:01 Rate is 76 beats/min. Rhythm is regular, Normal Sinus Rhythm. QRS [place] is Normal. NE sp4 interval is normal. QRS interval is normal. QT interval is normal. No Q waves. T waves are Normal. No ST changes noted. Clinical impression: Normal ECG. Interpreted by me. Reviewed by me. Administered Medications: 21:40 Drug: [place] PO 10 mg-325 mg 1 tabs PO once Route: PO; me1 23:02 Follow up: Response: No adverse reaction; Pain is decreased me1 21:40 Drug: Ketorolac IVP 30 mg IVP once Route: IVP; Site: right antecubital; me1 23:02 Follow up: Response: No adverse reaction; Pain is decreased me1 23:05 Drug: HYDROcodone-acetaminophen PO 5 mg-325 mg 2 tabs PO once Route: PO; me1 23:17 Follow up: Response: No adverse reaction; Pain is decreased me1 Disposition Summary: 10/01/23 23:16 Discharge Ordered Notes: Continue medications prescribed on 09/29/2023 Location: Home sp4 Problem: new sp4 Symptoms: have improved sp4 Condition: Stable sp4 Diagnosis - Bilateral foot pain, bilateral lower extremity swelling, sp4 - Bilateral inflammatory arthritis, polyarticular inflammatory arthritis sp4 Followup: sp4 - With: Private Physician - When: 7 - 10 days - Reason: Recheck today's complaints Discharge Instructions: - Discharge Summary Sheet sp4 - Arthritis, [id number] sp4 Forms: - Patient Portal Instructions sp4 Signatures: Dispatcher [employer] Manuela Littlejohn FNP-Zachary Carvalho, RN RN jj7 Jon Matthews MD MD sp4 Patricia Morel RN RN me1 Corrections: (The following items were deleted from the chart) 20:56 20:56 BASIC METABOLIC PANEL+C.LAB.BRZ ordered. EDMS EDMS 20:56 20:56 CBC+H.LAB.BRZ ordered. EDMS EDMS 20:56 20:56 HEPATIC FUNCTION+C.LAB.BRZ ordered. EDMS EDMS 20:56 20:56 MAGNESIUM+C.LAB.BRZ ordered. EDMS EDMS 20:56 20:56 PROBNP+C.LAB.BRZ ordered. EDMS EDMS 20:56 20:56 PROTIME (+INR)+COAG.LAB.BRZ ordered. EDMS EDMS 20:56 20:56 Troponin High Sensitivity+C.LAB.BRZ ordered. EDMS EDMS 20:56 20:56 Chest Single View+RAD.RAD.BRZ ordered. EDMS EDMS 20:57 20:57 C-REACTIVE PROTEIN+C.LAB.BRZ ordered. EDMS EDMS 20:57 20:57 LACTATE+C.LAB.BRZ ordered. EDMS EDMS 20:57 20:57 CREATINE PHOSPHOKINASE+C.LAB.BRZ ordered. EDMS EDMS 20:57 20:57 URIC ACID+C.LAB.BRZ ordered. EDMS EDMS 23:06 23:04 67-year-old male presents for the second time today secondary to complaint of sp4 bilateral foot pain and swelling. Patient was here on 09/29/2023 and was diagnosed with acute gouty arthritis and prescribed prednisone, allopurinol, Tylenol 3.. Patient was here again on 10/01/2023.. sp4 23:07 22:01 Constitutional: This is a well developed, well nourished patient who is awake, sp4 alert, and in no acute distress. Head/Face: Normocephalic, atraumatic. Eyes: Pupils equal round and reactive to light, extra-ocular motions intact. Lids and lashes normal. Conjunctiva and sclera are not injected. Cornea within normal limits. Periorbital areas with no swelling, redness, or edema. ENT: Nares patent. No nasal discharge, no septal abnormalities noted. Tympanic membranes are normal and external auditory canals are clear. Oropharynx with no redness, swelling, or masses, exudates, or evidence of obstruction, uvula midline. Mucous membranes moist. Neck: Trachea midline, no thyromegaly or masses palpated, and no cervical lymphadenopathy. Supple, full range of motion without nuchal rigidity, or vertebral point tenderness. Chest/axilla: Normal chest wall appearance and motion. Nontender with no deformity. No lesions are appreciated. Cardiovascular: Regular rate and rhythm with a normal S1 and S2. No gallops, murmurs, or rubs. Normal PMI, no JVD. No pulse deficits. Bilateral lower extremity mild swelling Respiratory: Lungs have equal breath sounds bilaterally, clear to auscultation and percussion. No rales, rhonchi or wheezes noted. No increased work of breathing, no retractions or nasal flaring. Abdomen/GI: Soft, with normal bowel sounds. No distension or tympany. No guarding or rebound. No evidence of tenderness throughout. Back: No spinal tenderness. No costovertebral tenderness. Skin: Warm, dry with normal turgor. Normal color with no rashes, no lesions, and no evidence of cellulitis. MS/ Extremity: Pulses equal, no cyanosis. Neurovascular intact. Full, normal range of motion. Neuro: Awake and alert, GCS 15, oriented to person, place, time, and situation. Cranial nerves II-XII grossly intact. Motor strength 5/5 in all extremities. Sensory grossly intact. Psych: Awake, alert, with orientation to person, place and time. Behavior, mood, and affect are within normal limits sp4
[2023-10-02 00:47] VITALS: BP 152/91; O2SAT 99
== END 2023-10-01 23:25 | disposition home or self-care (01) ==
LOC: ER 20:28
DX: M06.4 Inflammatory polyarthropathy (principal); M79.672 Pain in left foot; M79.671 Pain in right foot; Z28.310 Unvaccinated for COVID-19
CPT/HCPCS: 36415; 71045; 80048; 80076; 82550; 83605; 83735; 83880; 84484; 84550; 85025; 85610; 85730; 86140; 93005; 93970; 96374; 99284

== ENCOUNTER 2023-10-16 14:54 | Emergency (ER) | payer OTHER ==
--- OUTSIDE RECORDS SUMMARY | 2023-10-16 14:56 | XMS REPORT | Continuity of Care Document ---
Author Name Unknown Address [address] [place] [address] [address] [place] [address] [facility] thconnect Address [address] [facility] [address] [place] [address] Care Team Providers Care Health And Safety Tech Name Role Phone PCP, PATIENT DOES NOT HAVE A Primary Care Physic demarcus Unavailable HOLDEN WILLIAMSON Attending Clinician Unavailable Holden Williamson MD Attending Clinician HOLDEN WILLIAMSON Admitting Clinician Unavailable Payers Payer Name Policy Type Policy Number Effective Date Expirati on Date Source MEDICARE PART A \\T\\ B [id number] 2022 00:00:00 MEDICAID OF [place] [id number] 2023 00:00:00 Allergies, Adverse Reactions, Alerts Allergy Name Allergy Type Status Severity Reaction(s) Onset Date Inactive Date Treating Clinician Comments Source NO KNOWN ALLERGIE S Drug Class Active [facility] Social History Social Habit Start Date Stop Date Quantity Comments Source Sexual orientation [facility] Sex Assigned At 1955 00:00:00 1955 00:00:00 [facility] Smoking Status Start Date Stop Date Source Tobacco smoking consumption unknown [facility] Medications Ordered Medication Name Filled Medication Name Start Date Stop Date Current Medication? Ordering Clinician Indication Dosage Frequency Signature (SIG) Comments Components Source maalox:diph enhydrAMINE :lidocaine 2 % viscous 1:1:1 (FIRST-MOUT HWASH BLM) oral suspension 15 mL 2022-05 18:45: 00 05-13 18:56 :00 No 15mL 15 mL, Oral, ONCE, 1 dose, On Sat05/13/23 at 1245, Routine [facility] famotidine (PEPCID (PF)) injection 20 mg 2022-05 16:00: 00 05-13 15:58 :00 No 20mg 20 mg, Slow IV Push, ONCE, 1 dose, On Sat05/13/23 at 1000, ISI [facility] Immunizations Ordered Immunization Name Filled Immunization Name Date Status Comments Source SARS-COV-2 COVID-19 MODERNA 12+ YRS VACCINE Unknown Completed [facility] SARS-COV-2 COVID-19 MODERNA 12+ YRS VACCINE Unknown Completed [facility] Vital Signs Vital Name Observation Time Observation Value Comments S ource Systolic blood pressure 2023-05-13 19:30:00 154 mm[Hg] [facility] Diastolic blood pressure 2023-05-13 19:30:00 90 mm[Hg] [facility] Heart rate 2023-05-13 19:30:00 75 /min [facility] Respiratory rate 2023-05-13 19:30:00 18 /min [facility] Oxygen saturation in Arterial blood by Pulse oximetry 2023-05-13 19:30:00 97 /min [facility] Body temperature 2023-05-13 15:27:00 36.39 Cindy [facility] Body height 2023-05-13 15:27:00 177.8 cm [facility] Body weight 2023-05-13 15:27:00 90.719 kg [facility] BMI 2023-05-13 15:27:00 28.70 kg/m2 [facility] Procedures Procedure Date / Time Performed Performing Clinicia n Source TROPONIN I 2023-05-13 19:02:00 Holden Williamson [facility] HB ECG ROUTINE & RHYTHM STRIP 2023-05-13 15:59:09 Holden Williamson [facility] LIPASE 2023-05-13 15:58:00 Holden Williamson [facility] TROPONIN I 2023-05-13 15:58:00 Holden Williamson [facility] COMP. METABOLIC PANEL (57879) 2023-05-13 15:58:00 Holden Williamson [facility] CBC WITH DIFF 2023-05-13 15:58:00 Holden Williamson [facility] N-TERMINAL PRO-BNP 2023-05-13 15:58:00 Holden Williamson [facility] Encounters Start Date/Time End Date/Time Encounter Type Admission Type Attending Clinicians Care Facility Care Department Encounter ID Source 2023-05-13 09:26:00 2023-05-13 14:38:00 Emergency X HOLDEN WILLIAMSON [facility] ERT [id number] [facility] 2023-05-13 09:26:00 2023-05-13 14:38:00 Emergency Holden Williamson [facility] [id number] 4.2.7.2.686 [id number] [facility] Results Test Description Test Time Test Comments Results Result Co mments Source [facility] (15438)2023-05-13 17:06:52* Test Item Value Reference Range Interpretation Comme nts NA (test code = 8405190828) 135 mmol/L 135-145 K (test code = 4508538044) 4.1 mmol/L 3.5-5.0 CL (test code = 1339629976) 101 mmol/L 98-108 CO2 TOTAL (test code = 8422170529) 24 mmol/L 23-31 AGAP (test code = 6555367419) 10 2-16 BUN (test code = 5162236695) 18 mg/dL 7-23 GLUCOSE (test code = 1448817210) 109 mg/dL 70-110 CREATININE (test code = 1938073341) 0.87 mg/dL 0.60-1.25 TOTAL BILI (test code = 0852580846) 1.4 mg/dL 0.1-1.1 H CALCIUM (test code = 5860129095) 9.0 mg/dL 8.6-10.6 T PROTEIN (test code = 0882414752) 7.6 g/dL 6.3-8.2 ALBUMIN (test code = 8376551630) 4.1 g/dL 3.5-5.0 ALK PHOS (test code = 5303922243) 73 U/L 34-122 ALTv (test code = 1742-6) 31 U/L 5-50 AST(SGOT) (test code = 8532648091) 34 U/L 13-40 eGFR (test code = 39578-7) 95.8 mL/min/1.73m2 CKD-EPI eGFR (2020). Assuming creatinine has been stable day-to-day for at least three months, the eGFR indicates Category G1 (>= 90 mL/min/1.73 m2) Lab Interpretation (test code = 90968-6) [facility]normal [facility] D9582-00-49 16:44:31* Test Item Value Reference Range Interpretation Comme nts TROPONIN I (test code = 4885166161) 0.004 ng/mL <=0.034 SARA (test code = [...] of biotin. Lab Interpretation (test code = 06094-4) Normal [facility] YRP-LED3830-33-25 16:42:40* Test Item Value Reference Range Interpretation Comme nts NT-proBNP (test code = 65248-3) 254 pg/mL <=125 SARA (test code = SARA) Result Indeterminate-Consid er causes of NT-proBNP elevation other than Heart failure such as acute coronary syndrome, pulmonary embolism, pulmonary hypertension, sepsis, stroke, and renal dysfunction. Lab Interpretation (test code = 42670-2) Abnormal [facility]2023-12-25 16:32:27* Test Item Value Reference Range Interpretation Comme nts LIPASE (test code = 0793783363) 39 U/L 0-220 Lab Interpretation (test cod e = 27241-4) Normal [facility] WITH VDER1900-54-71 16:24:49* Test Item Value Reference Range Interpretation [...] 35.0 g/dL 31.2-35.0 RDW-SD (test code = 39814-4) 42.1 fL 38.5-51.6 RDW-CV (test code = 788-0) 12.7 % 12.1-15.4 PLT (test code = 777-3) 180 See_Comment [Automated messa ge] The system which generated this result transmitted reference range: 150 - 328 10*3/?L. The reference range was not used to interpret this result as normal/abnormal. MPV (test code = 84730-6) 9.1 fL 9.8-13.0 L NRBC/100 WBC (test code = 3686319424) 0.0 See_Comment [Automated Capture Media ssage] The system which generated this result transmitted reference range: 0.0 - 10.0 /100 WBCs. The reference range was not used to interpret this result as normal/abnormal. NRBC x10^3 (test code = 5369866179) See_Comment [Automated messa ge] The system which generated this result transmitted reference range: 10*3/?L. The reference range was not used to interpret this result as normal/abnormal. GRAN MAT (NEUT) % (test code = 770-8) 78.7 % IMM GRAN % (test code = 7394842378) 0.80 % LYMPH % (test code = 736-9) 12.0 % MONO % (test code = 5905-5) 7.8 % EOS % (test code = 713-8) 0.4 % BASO % (test code = 706-2) 0.3 % GRAN MAT x10^3(ANC) (test code = 6330068577) 8.30 10*3/uL 1.99-6.95 H IMM GRAN x10^3 (test code = 2048985575) 0.08 10*3/uL 0.00-0.06 H LYMPH x10^3 (test code = 731-0) 1.27 10*3/uL 1.09-3.23 MONO x10^3 (test code = 742-7) 0.82 10*3/uL 0.36-1.02 EOS x10^3 (test code = 711-2) 0.04 10*3/uL 0.06-0.53 L BASO x10^3 (test code = 704-7) 0.03 10*3/uL 0.01-0.09 Lab Interpretation (test code = 54604-1) Abnormal [facility] Notes Date/Time Note Provider Source 2023-05-13 14:38:22 +SlWk6yBoPgtS0gASaMNSyrzqhZBR0WUOJDYGk 4wdcxmPNaRnCBleR5RYO0oFJZs4572-40-12Z9 4:38:22 Pt D/C in custody of officers. AOx4, VS stable, no ataxia noted. Officers given D/C paperwork. S/S relieved with no apparent distress noted at this time. 27886-6Lvteuzzok department XaajTL8454-86-70I31:38:37[facility] NoteTXT1.2.840.697859.1.13.104.2.7.2.7 63316|[id number] for patient tmky16192-7GxfeNCPBLGPCBYNObcubifll C-CDA narrative text[id number] BUSUSHMGABQJPJLLTSGL2310-58-63F29:38:3 71.2.840.838565.1.72.3.15|1.2.840.1143 50.1.13.104.2.7.2.727879_[id number] [facility] 2023-05-13 11:00:24 RwcERCBk9oRwSQfOkO67ZgApP19LaZdq8tb5mQ w1BmrEnir4QUS0GVVkfeQ8wNST8290-67-79B8 1:00:24 Report received from CRICKET Xavier 22969-3Gahmxwumu department IoizAY6032-22-99G74:00:52Emergency department NoteTXT1.2.840.259280.1.13.104.2.7.2.7 64305|[id number] for patient jner06295-7IykqOGIPUNWGWWUKoyihudig C-CDA narrative ooat026565556Scuxqqsravanthi WALKER[id number] CQMKEDVBXDIEHKUCQOIK7420-56-83F87:00:5 21.2.840.016925.1.72.3.15|1.20.1143 50.1.13.104.2.7.2.727879_[id number] Ada Roman RN [facility] 2023-05-13 10:52:54 qvwv0RpqquKjft/TRlH4Hvt+CMQsL+Qpz3Cd2e lzJmPxNsUahnP/4tMo6Kse1N3X0044-97-11U4 0:52:54 Report given to CRICKET Caballero [address] QefrJT7553-97-83U30:53:10[facility] NoteTXT1.2.840.853526.1.13.104.2.7.2.7 02275|[id number] for patient ifya48884-6TtcpFYIKNYMQLEMQwukadkpk C-CDA narrative vjie660115903Ewcbi M Martinez [id number] LYLVHKHRLPLDDXMLULMO1279-36-53Z33:53:1 01.2.840.276648.1.72.3.15|1.2.840.1143 50.1.13.104.2.7.2.727879_[id number] Delma Xavier RN [facility] 2023-05-13 09:49:04 Y47xHuRfQGV0LUVD9ht/G1Vz3WulnZx+u5689X cvz7XS5myWycRFWEMYzQaZjzBo1280-91-49M1 9:49:04 90399-0Xgmeacaaa[address] TgmhGI7146-30-93Z92:52:30[facility] NoteTXT1.2.840.892908.1.13.104.2.7.2.7 05677|[id number] for patient btbu82201-3CipvLYTEKFPOQSWWgggrrzal C-CDA narrative text[address]TXTX7755577555US UCAXTSANIUGLNQWXCFEW2875-96-43N39:52:3 01.2.840.675474.1.72.3.15|1.2.840.1143 50.1.13.104.2.7.2.727879_[id number] [facility] 2023-05-13 09:27:01 v5gj9NKECZgWUj6MUUTVpfzovnYJNzE5IDvQP5 reAavGC1XeThYiMwBfPBZ/4KHe8799-44-95X3 9:27:01 Pt complaining of heartburn, epigastric/substernal pain since midnight. [facility] gave NTGx2, ASA 325 and 0.1 clonidine. 68428-4Eovbwvupa department Triage dwtcCT5622-58-65I26:27:45[facility] Triage noteTXT1.2.840.552059.1.13.104.2.7.2.7 67450|[id number] for patient boqc19954-1Gkebxlflz department NoteLNNARRATIVEFormatted C-CDA narrative text66 [id number] YYUJOPCCEVTDALQAHRWH3284-45-52Z34:27:4 51.2.840.639421.1.72.3.15|1.2.840.1143 50.1.13.104.2.7.2.727879_[id number] [facility] 2023-05-13 09:24:00 WTsEo2pySql3+4xXDmoPIwLZIPeER9TwTZGGNY TT7mGFM3zjRwUQsYQTeRasBtV00738-38-86E9 9:24:00Associated Order(s): EKG-12 Lead ROUTINE ONCEPre-Procedure Diagnose(s): Shortness of breath; Chest pain of uncertain etiologyPost-Procedure Diagnose(s): Shortness of breath; Chest pain of uncertain etiology [facility] Emergency Department NotePatient Name: Zack Zavaleta of : 1955 67 year old maleTreatment Room: [place] [address]/KVTX24-91Yapsdgq Record Number: [id number] Care Physician: PATIENT DOES NOT HAVE A PCPPatient Escorted by: Law enforcement [8]Mode of Arrival: EMS - [place] [47]EMS 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 METABOLIC PANEL (99071) - AbnormalResult Value Ref RangeNA 135 135 [...] U/LAST(SGOT) 34 13 - 40 U/LeGFR 95.8 mL/min/1.87o2W-MFILJRDZ PRO-BNP - AbnormalNT-proBNP 254 <=125 pg/mLCBC WITH [...] This EncounterProceduresXR CHEST 1 VWCOMP. METABOLIC PANEL (40413)LIPASETROPONIN IN-TERMINAL PRO-BNPCBC WITH DIFFTroponin IOrders Placed This EncounterMedicationsfamotidine (PEPCID (PF)) injection 20 mgmaalox:diphenhydrAMINE:lidocaine 2 % viscous 1:1:1 (FIRST-MOUTHWASH BLM) oral suspension 15 mLFirst Provider Eval:ED EventsDate/Time Event User Nhtbjtzy02/25/23 0941 Medical Screening Begins HOLDEN WILLIAMSON MD --05/13/23 0941 First Provider Evaluation HOLDEN WILLIAMSON MD --ED COURSEED Course as of 05/13/23 142May [id number] TROPONIN I: 0.004Non cardiac. Treat as gastritis. Follow up blood pressure with unit provider at [facility].Famotidine BID, maalox prn. [GR]ED Course User Index[GR] Holden Williamson MDDiagnosis/Impression as of 05/13/23 1421Shortness of breathChest pain of uncertain etiologyOther acute gastritis without hemorrhageBlood pressure elevated without history of HTNProcedures:EKG-12 Lead ROUTINE ONCEDate/Time: 05/13/2023 10:02 AMPerformed by: Holden Williamson MDAuthorized by: Holden Williamson MDECG interpreted by ED Physician in the absence of a financial data analyst: yesPrevious ECG:Previous ECG: UnavailableInterpretation:Interpretati on: normalRate:ECG rate: [...] on fileFollow-up:Contact information for follow-upUnit Provider [facility] 1 dayElectronically signed by:Holden Williamson MD05/13/23 1421 00128-1Ogttosivy Emergency department OkpfLJ7574-25-39U61:21:51Physician Emergency department NoteTXT1.2.840.645559.1.13.104.2.7.2.7 89107|[id number] for patient mcif16240-8Skdhgpasp department NoteLNNARRATIVEFormatted C-CDA narrative textUT51 Hart [id number] IVJJXMKRUKMCLPRKXSPP7364-35-37A60:21:5 11.2.840.043902.1.72.3.15|1.2.840.1143 50.1.13.104.2.7.2.727879_[id number] [facility]
[2023-10-16] MEDS ORDERED: GABAPENTIN 300 MG CAP ONE (15:52)
[2023-10-16] MEDS ORDERED: HYDROCODONE/APAP 5/325 MG TAB ONE (15:52)
[2023-10-16] MEDS ORDERED: COLCHICINE 0.6 MG TAB ONE (15:52)
--- NOTE | 2023-10-16 16:42 | ER ---
Nurse's Notes [facility] Name: Leobardo Tejeda Age: 68 yrs Sex: Male : 1955 Arrival Date: 10/16/2023 Time: 14:54 Bed IW1 Private MD: Diagnosis: Gout, unspecified Presentation: 10/15 15:13 Chief complaint: EMS states: CHRONIC FEET AND LEG PAIN WORSE TODAY. UNABLE TO WALK X 1 db MONTH. Coronavirus screen: Client denies travel out of the [place] in the last 14 days. At this time, the client does not indicate any symptoms associated with coronavirus-19. Ebola Screen: Patient negative for fever greater than or equal to 101.5 degrees Fahrenheit, and additional compatible Ebola Virus Disease symptoms Patient denies exposure to infectious person. Patient denies travel to an Ebola-affected area in the 21 days before illness onset. No symptoms or risks identified at this time. Initial Sepsis Screen: Does the patient meet any 2 criteria? No. Patient's initial sepsis screen is negative. Does the patient have a suspected source of infection? No. Patient's initial sepsis screen is negative. Risk Assessment: Do you want to hurt yourself or someone else? Patient reports no desire to harm self or others. Onset of symptoms was October 16, 2023. 15:13 Method Of Arrival: EMS: [facility] db 15:13 Acuity: MERLY 4 db Triage Assessment: 15:14 General: Appears in no apparent distress. comfortable, Behavior is calm, cooperative. db Pain: Complains of pain in right leg and left leg. 15:33 Musculoskeletal: Swelling present in left leg and right leg. db Historical: - Allergies: 15:14 No Known Allergies; db - PMHx: 15:14 Distant drug abuse; Gout; db - Immunization history:: Adult Immunizations unknown. - Infectious Disease History:: Denies. - Social history:: Smoking status: Patient reports the use of cigarette tobacco products, smokes one pack cigarettes per day. - Family history:: not pertinent. - Hospitalizations: : No recent hospitalization is reported. Screenin:50 [facility] ED Fall Risk Assessment (Adult) History of falling in the last 3 months, db including since admission Yes- single mechanical fall (1 pt) Confusion or Disorientation No (0 pts) Intoxicated or Sedated No (0 pts) Impaired Gait Yes (1 pt) Mobility Assist Device Used No (0 pt) Altered Elimination No (0 pt) Score/Fall Risk Level 0 - 2 = Low Risk Oriented to surroundings, Maintained a safe environment. Abuse screen: Denies threats or abuse. Denies injuries from another. Nutritional screening: No deficits noted. Tuberculosis screening: No symptoms or risk factors identified. Assessment: 17:50 Reassessment: Patient appears in no apparent distress at this time. Patient and/or db family updated on plan of care and expected duration. Pain level reassessed. Patient is alert, oriented x 3, equal unlabored respirations, skin warm/dry/pink. Vital Signs: 15:13 BP 125 / 74; Pulse 96; Resp 18; Pulse Ox 98% ; db 15:35 BP 125 / 100; Pulse 100; Resp 18; Temp 97.9; Pulse Ox 100% ; db 15:37 Weight 102.06 kg; Height 5 ft. 10 in. ; db 17:50 BP 132 / 98; Pulse 92; Resp 16; Temp 97.9; Pulse Ox 100% ; db 15:37 Body Mass Index 32.28 (102.06 kg, 177.8 cm) db ED Course: 15:04 Patient arrived in ED. iw 15:08 Travis Hampton MD is Attending Physician. rn 15:14 Triage completed. db 15:14 Arm band placed on. db 17:50 Patient has correct armband on for positive identification. Provided Education on: db DISCHARGE. 17:50 No provider procedures requiring assistance completed. Patient did not have IV access db during this emergency room visit. Administered Medications: 15:40 CANCELLED (Duplicate Order): wvyxsnthi642 mg PO once rn 15:54 Drug: Colchicine-Probenecid PO 1 tabs PO once Route: PO; db 17:53 Follow up: Response: No adverse reaction db 15:54 Drug: HYDROcodone-acetaminophen PO 5 mg-325 mg 1 tabs PO once Route: PO; db 17:53 Follow up: Response: No adverse reaction db 15:54 Drug: Gabapentin PO 300 mg PO once Route: PO; db 17:53 Follow up: Response: No adverse reaction db Medication: 17:50 VIS not applicable for this client. db Outcome: 16:42 Discharge ordered by . rn 17:50 Discharged to home via wheelchair, db 17:50 Condition: stable 17:50 Instructed on discharge instructions, follow up and referral plans. 17:54 Patient left the ED. db Signatures: Joann Gray RN RN iw Nieto, Roman, MD MD rn Benton, Danielle, RN RN db
--- NOTE | 2023-10-16 16:42 | EDPHYS ---
Physician Documentation [facility] Name: Leobardo Tejeda Age: 68 yrs Sex: Male : 1955 Arrival Date: 10/16/2023 Time: 14:54 Bed IW1 Private MD: ED Physician Travis Hampton HPI: 10/15 15:40 This 68 yrs old Male presents to ER via EMS with complaints of Leg Pain. rn 15:40 The patient presents with pain, that is chronic. The complaints affect the left knee, rn anterior aspect of left ankle and dorsum of left foot. Onset: The symptoms/episode began/occurred 1 month(s) ago. Modifying factors: The symptoms are alleviated by nothing. the symptoms are aggravated by weight bearing. Associated signs and symptoms: Pertinent negatives fever, rash, warmth, weakness. Severity of symptoms: At their worst the symptoms were moderate. 15:41 The patient has experienced similar episodes in the past. Patient reports "back for leg rn pain ". Patient denies any acute injury. Patient with multiple visits recently for gout and leg pain. Denies any changes. States actively taking allopurinol. States left leg still hurts. No fever. No trauma. No history of DVT or PE. States came back for more pain medication.. Historical: - Allergies: 15:14 No Known Allergies; db - PMHx: 15:14 Distant drug abuse; Gout; db - Immunization history:: Adult Immunizations unknown. - Infectious Disease History:: Denies. - Social history:: Smoking status: Patient reports the use of cigarette tobacco products, smokes one pack cigarettes per day. - Family history:: not pertinent. - Hospitalizations: : No recent hospitalization is reported. ROS: 15:41 Constitutional: Negative for fever, chills, and weight loss, Cardiovascular: Negative rn for chest pain, palpitations Respiratory: Negative for shortness of breath, cough, wheezing, and pleuritic chest pain, Abdomen/GI: Negative for abdominal pain, nausea, vomiting, diarrhea, and constipation, MS/Extremity: Positive for left leg pain Skin: Negative for injury, rash Exam: 15:41 Constitutional: This is a well developed, well nourished patient who is awake, alert, rn and in no acute distress. Cardiovascular: Regular rate and rhythm. No pulse deficits. Respiratory: No increased work of breathing, no retractions or nasal flaring. Skin: Warm, dry, no cyanosis, no evidence of cellulitis MS/ Extremity: Pulses equal, no cyanosis. Neurovascular intact. Tophi noted left foot Neuro: Awake and alert, GCS 15, Motor strength 5/5 in all extremities. Sensory grossly intact. Vital Signs: 15:13 BP 125 / 74; Pulse 96; Resp 18; Pulse Ox 98% ; db 15:35 BP 125 / 100; Pulse 100; Resp 18; Temp 97.9; Pulse Ox 100% ; db 15:37 Weight 102.06 kg; Height 5 ft. 10 in. ; db 17:50 BP 132 / 98; Pulse 92; Resp 16; Temp 97.9; Pulse Ox 100% ; db 15:37 Body Mass Index 32.28 (102.06 kg, 177.8 cm) db MDM: 15:08 Patient medically screened. rn 16:41 Differential diagnosis: Arthritis, gout. Data reviewed: vital signs, nurses notes, old rn medical records, and as a result, I will discharge patient. Counseling: I had a detailed discussion with the patient and/or guardian regarding the historical points, exam findings, and any diagnostic results supporting the discharge/admit diagnosis, the need for outpatient follow up, to return to the emergency department if symptoms worsen or persist or if there are any questions or concerns that arise at home. Response to treatment: the patient's symptoms have mildly improved after treatment, and as a result, I will discharge patient. Special discussion: I discussed with the patient/guardian in detail that at this point there is no indication for admission to the hospital. It is understood, however, that if the symptoms persist or worsen the patient needs to return immediately for re-evaluation. ED course: Had another long discussion with patient regarding his diagnosis of gout, chronic pain and outpatient management.. Administered Medications: 15:40 CANCELLED (Duplicate Order): xxdayamss312 mg PO once rn 15:54 Drug: Colchicine-Probenecid PO 1 tabs PO once Route: PO; db 17:53 Follow up: Response: No adverse reaction db 15:54 Drug: HYDROcodone-acetaminophen PO 5 mg-325 mg 1 tabs PO once Route: PO; db 17:53 Follow up: Response: No adverse reaction db 15:54 Drug: Gabapentin PO 300 mg PO once Route: PO; db 17:53 Follow up: Response: No adverse reaction db Disposition Summary: 10/16/23 16:42 Discharge Ordered Notes: Location: Home rn Problem: an ongoing problem rn Symptoms: have improved rn Condition: Stable rn Diagnosis - Gout, unspecified rn Followup: rn - With: Private Physician - When: As needed - Reason: Recheck today's complaints, Re-evaluation by your physician Discharge Instructions: - Discharge Summary Sheet rn - Arthritis rn - Gout rn Forms: - Medication Reconciliation Form rn - Antibiotic rn chemical dependency - Prescription Opioid Use rn - Patient Portal Instructions rn - Leadership Thank You Letter rn Signatures: Travis Hampton MD MD rn Benton, Danielle, RN RN db Corrections: (The following items were deleted from the chart) 15:40 15:18 Ibuprofen PO 800 mg PO once ordered. rn rn
[2023-10-16 18:40] VITALS: BP 132/98; TEMP 97.9; O2SAT 100
== END 2023-10-16 17:54 | disposition home or self-care (01) ==
LOC: ER 14:54
DX: M10.9 Gout, unspecified (principal); F17.210 Nicotine dependence, cigarettes, uncomplicated
CPT/HCPCS: 99283

== ENCOUNTER 2023-12-23 16:54 | Emergency (ER) | payer OTHER ==
--- OUTSIDE RECORDS SUMMARY | 2023-12-23 16:57 | XMS REPORT | Continuity of Care Document ---
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 conduction: normal ST segments: ST segments: Normal T waves: T waves: normal Q waves: Abnormal Q-waves: not present MDM: Medical Decision Making Indigestion vs cardiac event vs upper right abdominal pain which could be gastritis, gall bladder stones, or pancreatitis. Shortness of breath with lying flat, and acid reflux symptoms. Check CMP, lipase, CBC, get EKG and chest xray. Also a smoker and has some restricted air movement. Troponin negative. EKG normal. Given GI cocktail, some relief. BP mildly elevated. Low risk HEART score, so observed, repeated troponin and negative, no increase. Will DC with gastritis and follow up to his unit provider regarding blood pressure. Monitoring. Amount and/or Complexity of Data Reviewed Labs: ordered. Decision-making details documented in ED Course. Radiology: ordered. Risk Prescription drug management. Flowsheet Documentation: Scoring Tools: No data recorded HEART Score: 3 Disposition/Condition: ED Disposition ED Disposition Disch - Home Condition Stable Comment -- Discharge Medications: Patient's Medications No medications on file Follow-up: Contact information for follow-up Unit Provider at [facility] in 1 day Electronically signed by: Holden Williamson MD 05/13/23 1421 [facility]
--- NOTE | 2023-12-23 17:50 | EDPHYS ---
Physician Documentation [facility] Name: Leobardo Tejeda Age: 68 yrs Sex: Male : 1955 Arrival Date: 12/23/2023 Time: 16:54 Bed 8 Private MD: ED Physician Karley Mckeon HPI: 12/22 17:52 This 68 yrs old Male presents to ER via EMS with complaints of right elbow gb1 pain. Historical: - Allergies: 17:05 No Known Allergies; bp - PMHx: 17:05 Distant drug abuse; Gout; bp - Immunization history:: Adult Immunizations up to date. - Infectious Disease History:: Denies. - Social history:: Smoking status: unknown. Exam: 17:52 Constitutional: This is a well developed, well nourished patient who is awake, alert, gb1 and in no acute distress. Head/Face: Normocephalic, atraumatic. Eyes: Pupils equal round and reactive to light, extra-ocular motions intact. Lids and lashes normal. Conjunctiva and sclera are non-icteric and not injected. Cornea within normal limits. Periorbital areas with no swelling, redness, or edema. ENT: Nares patent. No nasal discharge, no septal abnormalities noted. Tympanic membranes are normal and external auditory canals are clear. Oropharynx with no redness, swelling, or masses, exudates, or evidence of obstruction, uvula midline. Mucous membranes moist. Neck: Trachea midline, no thyromegaly or masses palpated, and no cervical lymphadenopathy. Supple, full range of motion without nuchal rigidity, or vertebral point tenderness. No Meningismus. Chest/axilla: Normal chest wall appearance and motion. Nontender with no deformity. No lesions are appreciated. Cardiovascular: Regular rate and rhythm with a normal S1 and S2. No gallops, murmurs, or rubs. Normal PMI, no JVD. No pulse deficits. Respiratory: Lungs have equal breath sounds bilaterally, clear to auscultation and percussion. No rales, rhonchi or wheezes noted. No increased work of breathing, no retractions or nasal flaring. Abdomen/GI: Soft, non-tender, with normal bowel sounds. No distension or tympany. No guarding or rebound. No evidence of tenderness throughout. Back: No spinal tenderness. No costovertebral tenderness. Full range of motion. Skin: Warm, dry with normal turgor. Normal color with no rashes, no lesions, and no evidence of cellulitis. MS/ Extremity: Pulses equal, no cyanosis. Neurovascular intact. Full, normal range of motion., +TTP right elbow, no olecrenon swelling or deformity, mild erythema Neuro: Awake and alert, GCS 15, oriented to person, place, time, and situation. Cranial nerves II-XII grossly intact. Motor strength 5/5 in all extremities. Sensory grossly intact. Cerebellar exam normal. Normal gait. Vital Signs: 17:04 BP 138 / 87; Pulse 100; Resp 18; Temp 98; Pulse Ox 96% ; bp MDM: 17:09 Patient medically screened. gb1 17:52 Differential Diagnosis gout, doubt fracture/dislocation or septic joint. gb1 Administered Medications: 18:00 Drug: Ketorolac IM 60 mg IM once Route: IM; Site: right deltoid; bp Disposition Summary: 12/23/23 17:50 Discharge Ordered Notes: Location: Home gb1 Condition: Stable gb1 Diagnosis - Idiopathic chronic gout, right elbow gb1 Followup: gb1 - With: Private Physician - When: 1 - 2 days - Reason: Further diagnostic work-up, Recheck today's complaints Discharge Instructions: - Discharge Summary Sheet gb1 - Gout, [id number] gb1 Forms: - Medication Reconciliation Form gb1 - Antibiotic Education gb1 - Prescription Opioid Use gb1 - Patient Portal Instructions gb1 - Leadership Thank You Letter gb1 Prescriptions: - indomethacin 50 mg Oral capsule - take 1 capsule ORAL route 2 times per day administer with food or milk; 20 gb1 capsule; Refills: 0, Product Selection Permitted - Allopurinol 100 mg Oral Tablet - take 1 tablet ORAL route once daily; 30 tablet; Refills: 0, Product Selection gb1 Permitted Signatures: Paulino Aburto, RN RN bp Karley Mckeon MD MD gb1
--- NOTE | 2023-12-23 17:50 | ER ---
Nurse's Notes [facility] Name: Leobardo Tejeda Age: 68 yrs Sex: Male : 1955 Arrival Date: 12/23/2023 Time: 16:54 Bed 8 Private MD: Diagnosis: Idiopathic chronic gout, right elbow Presentation: 12/22 17:04 Chief complaint: EMS states: LEFT ELBOW GOUT PAIN AFTER EVICTION. Coronavirus screen: bp At this time, the client does not indicate any symptoms associated with coronavirus-19. Ebola Screen: No symptoms or risks identified at this time. Initial Sepsis Screen: Does the patient meet any 2 criteria? No. Patient's initial sepsis screen is negative. Does the patient have a suspected source of infection? No. Patient's initial sepsis screen is negative. Risk Assessment: Do you want to hurt yourself or someone else? Patient reports no desire to harm self or others. Onset of symptoms is unknown. 17:04 Method Of Arrival: EMS: [facility] bp 17:04 Acuity: MERLY 4 bp Triage Assessment: 17:05 General: Appears in no apparent distress. Behavior is calm, cooperative, appropriate bp for age. Pain: Complains of pain in left elbow. Musculoskeletal: Swelling present in left elbow. Historical: - Allergies: 17:05 No Known Allergies; bp - PMHx: 17:05 Distant drug abuse; Gout; bp - Immunization history:: Adult Immunizations up to date. - Infectious Disease History:: Denies. - Social history:: Smoking status: unknown. Screenin:06 [facility] ED Fall Risk Assessment (Adult) History of falling in the last 3 months, bp including since admission No falls in past 3 months (0 pts) Confusion or Disorientation No (0 pts) Intoxicated or Sedated No (0 pts) Impaired Gait Yes (1 pt) Mobility Assist Device Used Yes (1 pt) Altered Elimination No (0 pt) Score/Fall Risk Level 0 - 2 = Low Risk. Abuse screen: Denies threats or abuse. Denies injuries from another. Nutritional screening: No deficits noted. Tuberculosis screening: No symptoms or risk factors identified. Assessment: 17:06 General: SEE TRIAGE NOTE. bp Vital Signs: 17:04 BP 138 / 87; Pulse 100; Resp 18; Temp 98; Pulse Ox 96% ; bp ED Course: 17:00 Patient arrived in ED. ec2 17:03 Karley Mckeon MD is Attending Physician. gb1 17:04 Paulino Aburto, RN is Primary Nurse. bp 17:05 Triage completed. bp 17:05 Arm band placed on. bp 17:06 Patient has correct armband on for positive identification. bp Administered Medications: 18:00 Drug: Ketorolac IM 60 mg IM once Route: IM; Site: right deltoid; bp Medication: 17:06 VIS not applicable for this client. bp Outcome: 17:50 Discharge ordered by . gb1 18:49 Patient left the ED. ll1 Signatures: Paulino Aburto, RN RN Elaine Dominguez RN RN 1 Uli Romero MD MD ec2 Karley Mckeon MD MD gb1
[2023-12-23] MEDS ORDERED: KETOROLAC 30 MG/ML INJ ONE (17:55)
[2023-12-23 22:33] VITALS: BP 138/87; TEMP 98; O2SAT 96
== END 2023-12-23 18:49 | disposition home or self-care (01) ==
LOC: ER 16:54
DX: M1A.0210 Idiopathic chronic gout, right elbow, without tophus (tophi) (principal)
CPT/HCPCS: 96372; 99284